=== PATIENT | female | born 1960 | race Caucasian/White ===

== ENCOUNTER → 2018-06-19 12:06 | Outpatient (CLI) | payer OTHER, SELFPAY ==
[2018-06-19 12:38] LABS: Appearance Urine UA CLEAR; Bilirubin Urine UA NEGATIVE (NEGATIVE); Color Urine UA YELLOW; Glucose Urine UA NEGATIVE (Normal); Ketones Urine UA NEGATIVE (NEGATIVE); Leukocyte Esterase Urine UA NEGATIVE (NEGATIVE); Nitrite Urine UA Negative (Negative); Occult Blood Urine UA NEGATIVE (Negative); Protein Urine UA NEGATIVE (Negative); Urobilinogen Urine UA 0.2 E.U./dL (0.2)
[2018-06-19 12:45] LABS: Hemoglobin A1C% w Est Avg Glu 6.5 % (4.0-6.0)
[2018-06-19 12:46] LABS: Add Manual Diff / Slide Review NO; Basophils Percent Auto 0.4 % (0-2); Eosinophils Percent Auto 1.5 % (2-4); Hematocrit 42.7 % (36-46); Lymphocytes Percent Auto 23.2 % (25-40); Mean Corpuscular HGB Conc 35.2 % (30-36); Mean Corpuscular Volume 93.7 fL (80-100); Monocytes Percent Auto 5.8 % (3-14); Neutrophils Absolute Auto 6200 /uL (3000-5900); Neutrophils Percent Auto 69.1 % (50-75); Platelet Count 245 X10^3/uL (150-400); Red Blood Cell Count 4.55 X10^6/uL (4.0-5.2); Red Cell Distribution Width 12.7 % (11.6-14.8)
[2018-06-19 13:18] LABS: Alanine Aminotransferase 32 IU/L (9-52); Albumin 4.6 g/dL (3.5-5.0); Albumin Globulin Ratio 1.6 (1.0-2.8); Alkaline Phosphatase 80 U/L (38-126); Aspartate Aminotransferase 34 IU/L (14-36); BUN Creatinine Ratio 26.3 (6-22); Bilirubin Total 0.5 mg/dL (0.2-1.3); Blood Urea Nitrogen 21 mg/dL (7-17); Calcium 9.8 mg/dL (8.4-10.2); Carbon Dioxide 25 mmol/L (22-32); Chloride 107 mmol/L (98-107); Cholesterol 203 mg/dL (140-199); Estimated Glomerular Filt Rate > 60.0 mL/min (>60); Globulin 2.8 g/dL (1.7-4.1); Glucose 125 mg/dL (70-100); HDL Cholesterol 47 mg/dL (40-60); HEMOLYSIS < 15 (0-50); LDL Cholesterol Calculated 130 mg/dL (<100); Potassium 4.3 mmol/L (3.4-5.1); Sodium 143 mmol/L (137-145); Total Protein 7.4 g/dL (6.3-8.2); Triglycerides 128 mg/dL (35-150)
[2018-06-19 13:49] LABS: TSH w/ Reflex to FT4 1.34 uIU/mL (0.47-4.68)
[2018-06-19 15:54] LABS: Microalbumin Urine Random 4.8 mg/dL (0-1.6)
[2018-06-19 15:55] LABS: Creatinine Urine Random 22.9 mg/dL; Microalbumi Creatinin Ratio Ur 209.6 ug/mg CR (<30)
== END ==
PROVIDERS: PCP Family Medicine; Visit Provider Nurse Practitioner Family
DX: E11.69 Type 2 diabetes mellitus with other specified complication (principal); E78.5 Hyperlipidemia, unspecified; Z72.0 Tobacco use
CPT/HCPCS: 36415; 80053; 80061; 81003; 82043; 82570; 83036; 84443; 85025

== ENCOUNTER → 2018-08-16 18:00 | Outpatient (CLI) | payer OTHER, SELFPAY | PROVIDERS: Family Provider Family Medicine; PCP Family Medicine | DX: Z23 Encounter for immunization (principal) | CPT/HCPCS: 90471; 90686 ==

== ENCOUNTER → 2019-02-20 13:14 | Outpatient (CLI) | payer OTHER, SELFPAY ==
[2019-02-20 14:06] LABS: Add Manual Diff / Slide Review NO; Basophils Absolute Auto 0 /uL (0-100); Basophils Percent Auto 0.3 % (0-2); Eosinophils Absolute Auto 100 /uL (0-450); Hematocrit 41.2 % (36-46); Hemoglobin 13.9 g/dL (12.0-16.0); Lymphocytes Absolute Auto 1900 /uL (1100-4500); Lymphocytes Percent Auto 17.3 % (25-40); Mean Corpuscular HGB Conc 33.8 % (30-36); Mean Corpuscular Hemoglobin 32.4 PG (26-34); Mean Corpuscular Volume 95.7 fL (80-100); Monocytes Absolute Auto 500 /uL (0-900); Monocytes Percent Auto 4.9 % (3-14); Neutrophils Absolute Auto 8500 /uL (1500-7000); Neutrophils Percent Auto 76.5 % (50-75); Platelet Count 243 X10^3/uL (150-400); Red Cell Distribution Width 13.1 % (11.6-14.8); White Blood Cell Count 11.1 X10^3/uL (4.5-11.0)
[2019-02-20 14:10] LABS: Hemoglobin A1C% w Est Avg Glu 5.9 % (4.0-6.0)
[2019-02-20 14:15] LABS: Cholesterol 115 mg/dL (140-199); HDL Cholesterol 50 mg/dL (40-60); LDL Cholesterol Calculated 43 mg/dL (<100); Triglycerides 108 mg/dL (35-150)
[2019-02-20 14:18] LABS: Alanine Aminotransferase 30 IU/L (9-52); Albumin 4.2 g/dL (3.5-5.0); Albumin Globulin Ratio 1.9 (1.0-2.8); Alkaline Phosphatase 65 U/L (38-126); Aspartate Aminotransferase 21 IU/L (14-36); BUN Creatinine Ratio 28.6 (6-22); Bilirubin Total 0.4 mg/dL (0.2-1.3); Blood Urea Nitrogen 20 mg/dL (7-17); Calcium 9.6 mg/dL (8.4-10.2); Carbon Dioxide 26 mmol/L (22-32); Chloride 104 mmol/L (98-107); Estimated Glomerular Filt Rate > 60.0 mL/min (>60); Globulin 2.2 g/dL (1.7-4.1); Glucose 103 mg/dL (70-100); HEMOLYSIS < 15 (0-50); Potassium 4.2 mmol/L (3.4-5.1); Sodium 139 mmol/L (137-145); Total Protein 6.4 g/dL (6.3-8.2)
== END ==
PROVIDERS: Nurse Practitioner Family; PCP Family Medicine; Visit Provider Family Medicine
DX: E78.5 Hyperlipidemia, unspecified (principal); E11.69 Type 2 diabetes mellitus with other specified complication; E11.9 Type 2 diabetes mellitus without complications; F32.9 Major depressive disorder, single episode, unspecified; G25.81 Restless legs syndrome
CPT/HCPCS: 36415; 80053; 80061; 83036; 85025

== ENCOUNTER → 2019-09-09 17:11 | Outpatient (CLI) | payer OTHER, SELFPAY | PROVIDERS: PCP Family Medicine | DX: Z23 Encounter for immunization (principal) | CPT/HCPCS: 90471; 90686 ==

== ENCOUNTER 2019-09-30 15:32 | Emergency (ER) | payer OTHER, SELFPAY ==
[2019-09-30 15:41] VITALS: BP 136/82; PULSE 81; RESP 20; TEMP 36.6; O2SAT 97; BMI 30.7
--- NOTE | 2019-09-30 15:52 | DI.RAD.S_ITS ---
PROCEDURE: XR KNEE LT 3V INDICATIONS: GLF, anterior pain TECHNIQUE: 3 views of the knee were acquired. COMPARISON: [facility], , KNEE 3V RIGHT, 07/01/2016, 14:14. FINDINGS: Bones: Transverse patellar fracture, with mild diastasis. Soft tissues: Small joint effusion. No suspicious soft tissue calcifications. IMPRESSION: Patellar fracture with associated small joint effusion Dictated by: David Huertas M.D. on 09/30/2019 at 16:22 Approved by: David Huertas M.D. on 09/30/2019 at 16:23
[2019-09-30 16:05] LABS: Add Manual Diff / Slide Review NO; Basophils Absolute Auto 0 /uL (0-100); Basophils Percent Auto 0.4 % (0-2); Eosinophils Absolute Auto 100 /uL (0-450); Hematocrit 37.8 % (36-46); Hemoglobin 13.3 g/dL (12.0-16.0); Lymphocytes Absolute Auto 2100 /uL (1100-4500); Lymphocytes Percent Auto 21.3 % (25-40); Mean Corpuscular HGB Conc 35.1 % (30-36); Mean Corpuscular Hemoglobin 33.3 PG (26-34); Mean Corpuscular Volume 94.8 fL (80-100); Monocytes Absolute Auto 500 /uL (0-900); Monocytes Percent Auto 5.1 % (3-14); Neutrophils Absolute Auto 7000 /uL (1500-7000); Neutrophils Percent Auto 72.2 % (50-75); Platelet Count 241 X10^3/uL (150-400); Red Blood Cell Count 3.99 X10^6/uL (4.0-5.2); White Blood Cell Count 9.7 X10^3/uL (4.5-11.0)
[2019-09-30 16:24] LABS: Alanine Aminotransferase 19 IU/L (<35); Albumin 4.1 g/dL (3.5-5.0); Albumin Globulin Ratio 1.6 (1.0-2.8); Alkaline Phosphatase 69 U/L (38-126); Aspartate Aminotransferase 29 IU/L (14-36); BUN Creatinine Ratio 31.7 (6-22); Bilirubin Total 0.4 mg/dL (0.2-1.3); Blood Urea Nitrogen 19 mg/dL (7-17); Carbon Dioxide 23 mmol/L (22-32); Chloride 105 mmol/L (98-107); Estimated Glomerular Filt Rate > 60.0 mL/min (>60); Globulin 2.5 g/dL (1.7-4.1); Glucose 171 mg/dL (80-110); HEMOLYSIS < 15 (0-50); Potassium 3.5 mmol/L (3.4-5.1); Sodium 137 mmol/L (137-145); Total Protein 6.6 g/dL (6.3-8.2)
[2019-09-30 16:25] LABS: Creatine Kinase 54 U/L (30-135)
[2019-09-30 16:36] LABS: Troponin I < 0.012 ng/mL (0.01-0.034)
[2019-09-30 16:49] VITALS: BP 122/85; PULSE 81; O2SAT 93
--- NOTE | 2019-09-30 16:52 | ED_ITS ---
HPI - Syncope General Chief Complaint: Syncope Stated Complaint: Passed Out and Fell At Work Time Seen by Provider: 09/30/19 15:42 Source: patient Mode of arrival: Wheelchair Limitations: no limitations History of Present Illness HPI narrative: Patient is a 59-year-old female with history of diabetes and hyperlipidemia who presents with a syncopal episode. 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 She came out of her room felt suddenly dizzy lightheaded and fell forward onto her knees and realized everyone was around her. She denies any chest pain or palpitations. She still feels a little dizzy and lightheaded. She did not hit her head she is not on any anti platelet her anticoagulation medication. She does complain of some back of the neck pain but is able to move her head and neck easily. She has no numbness tingling or weakness. She does complain of left knee pain she fell directly onto her knee. No chest pain or shortness of breath. Related Data Home Medications Medication Instructions Recorded Confirmed multivitamin 1 tab PO DAILY #0 12/14/11 09/30/19 Lancets 1 ea MISCELLANEOUS DIRECTED 09/30/19 09/30/19 losartan 50 mg PO QPM 09/30/19 09/30/19 metformin 1,000 mg PO QPM 09/30/19 09/30/19 rosuvastatin 10 mg PO QPM 09/30/19 09/30/19 sertraline [Zoloft] 50 mg PO QPM 09/30/19 09/30/19 Previous Rx's Medication Instructions Recorded blood sugar diagnostic #100 each 11/01/18 blood-glucose meter #1 each 11/15/18 hydrocodone-acetaminophen 1 tab PO Q6H PRN #10 tab 09/30/19 Allergies Allergy/AdvReac Type Severity Reaction Status Date / Time lisinopril AdvReac dry, Verified 09/30/19 15:46 hackey cough Review of Systems Review of Systems ROS Unobtainable: All systems reviewed & are unremarkable except as noted in HPI and below Constitutional Constitutional: Denies chills, Denies fever(s), Denies lethargy and Denies weakness Eyes Eyes: Denies change in vision, Denies eye discharge, Denies irritation and Denies loss of vision ENT Ears, Nose, Mouth, and Throat: Denies change in voice, Denies neck pain and Denies sore throat Cardiovascular Cardiovascular: Reports syncope, Denies dyspnea and Denies dyspnea on exertion Respiratory Respiratory: Denies cough, Denies dyspnea, Denies dyspnea on exertion and Denies wheezing Gastrointestinal Gastrointestinal: Denies abdominal pain, Denies change in bowel habits, Denies diarrhea, Denies nausea and Denies vomiting Genitourinary Genitourinary: Denies hematuria, Denies flank pain, Denies urinary incontinence and Denies urinary urgency Musculoskeletal Musculoskeletal: Reports as per HPI and Denies neck pain Integumentary/Breasts Skin/Breast: Denies pruritus, Denies erythema, Denies rash and Denies wounds Neurologic Neurologic: Reports syncope, Denies loss of vision and Denies weakness Allergic/Immunologic Allergic/Immunologic: Denies wheezing Patient History Medical History Chicken pox (Resolved) Chronic back pain (Chronic ~2000) Degenerative joint disease involving multiple joints (Chronic 2006) Depression (Chronic ~1999) Diabetes mellitus (Chronic ~2004) Measles (Resolved) Surgical History Anesthesia (Resolved) Status post appendectomy (Resolved 1991) Status post delivery (Resolved 1986) Status post delivery (Resolved 1989) Status post hernia repair (Resolved 2009) Status post tubal ligation (Resolved 1991) Family History Father Age: 82 Hypertension Sister Age: 54 Breast cancer Mother Alzheimer's disease Sister No problems noted. Social History Smoking Status: Current every day smoker Smoking Status: Current every day smoker tobacco type: cigarettes Substance Use Type: does not use Exam Initial Vital Signs Initial Vital Signs: Vital Signs Temperature 97.9 F 09/30/19 15:41 Pulse Rate 81 09/30/19 15:41 Respiratory Rate 20 09/30/19 15:41 Blood Pressure 136/82 09/30/19 15:41 Pulse Oximetry 97 09/30/19 15:41 GENERAL: Well-appearing, well-nourished and in no acute distress. HEENT: Head atraumatic,EOMI, pupils reactive, face symmetric NECK: No vertebral tenderness no step-offs CARDIOVASCULAR: Regular rate and rhythm without murmurs, rubs or gallops. RESPIRATORY: Breath sounds equal bilaterally, no wheezes rales or rhonchi. ABDOMEN: Soft, nontender. Normoactive bowel sounds all 4 quadrants. No guarding or rebound. EXTREMITIES: Normal range of motion, no clubbing or edema. Neurovascularly intact. Left knee tender to touch able to flex and extend but painful and range of motion limited due to pain. Peripheral pulse intact. NEUROLOGICAL: Alert and oriented x4.Normal gait and speech. Cranial nerves II through XII grossly intact. SKIN: Warm, dry, no laceration, no petechiae, no rashes or lesions. Procedures Orthopedic Splinting/Casting Injury #1: Side: left Lower Extremity Immobilizer: knee immobilizer Other Orthopedic Equipment: crutches Post splinting neuro exam: intact Post splinting vascular exam: intact Placed by: Nursing Course Orders Ordered: Discontinued Medications Sodium Chloride (Normal Saline 0.9%) 1,000 mls @ 1,000 mls/hr IV BOLUS ONE Stop: 09/30/19 17:50 Last Admin: 09/30/19 17:29 Dose: 1,000 mls/hr Documented by: LESLEY Ketorolac Tromethamine (Toradol) 30 mg IV NOW ONE Stop: 09/30/19 17:16 Last Admin: 09/30/19 17:29 Dose: 30 mg Documented by: LESLEY Morphine Sulfate (Morphine) 2 mg IV NOW ONE Stop: 09/30/19 18:17 Vital Signs Vital signs: Vital Signs - 8 hr 09/30/19 15:41 09/30/19 16:49 Temperature 97.9 F Pulse Rate 81 81 Respiratory Rate 20 Blood Pressure 136/82 Blood Pressure [Left Arm] 122/85 Pulse Oximetry 97 93 MDM - Syncope Lab Data Attestation: I reviewed the patient's lab results. Result diagrams: 09/30/19 15:57 09/30/19 15:57 Labs: Lab Results 09/30/19 09/30/19 09/30/19 Range/Units 15:57 15:57 16:03 WBC 9.7 (4.5-11.0) X10^3/uL RBC 3.99 L (4.0-5.2) X10^6/uL Hgb 13.3 (12.0-16.0) g/dL Hct 37.8 (36-46) % MCV 94.8 (80-100) fL MCH 33.3 (26-34) PG MCHC 35.1 (30-36) % RDW 13.0 (11.6-14.8) % Plt Count 241 (150-400) X10^3/uL Neut % (Auto) 72.2 (50-75) % Lymph % (Auto) 21.3 L (25-40) % [place] % (Auto) 5.1 (3-14) % Eos % (Auto) 1.0 L (2-4) % Baso % (Auto) 0.4 (0-2) % Neut # (Auto) 7000 (4243-5234) /uL Lymph # (Auto) 2100 (8122-3122) /uL [place] # (Auto) 500 (0-900) /uL Eos # (Auto) 100 (0-450) /uL Baso # (Auto) 0 (0-100) /uL Sodium 137 (137-145) mmol/L Potassium 3.5 (3.4-5.1) mmol/L Chloride 105 (98-107) mmol/L Carbon Dioxide 23 (22-32) mmol/L BUN 19 H (7-17) mg/dL Creatinine 0.60 (0.52-1.04) mg/dL Estimated GFR > 60.0 (>60) mL/min BUN/Creatinine Ratio 31.7 H (6-22) Glucose 171 H (80-110) mg/dL Calcium 9.0 (8.4-10.2) mg/dL Total Bilirubin 0.4 (0.2-1.3) mg/dL AST 29 (14-36) IU/L ALT 19 (<35) IU/L Alkaline Phosphatase 69 (38-126) U/L Total Creatine Kinase 54 (30-135) U/L CK-MB (CK-2) TNP CK-MB (CK-2) Rel Index TNP Troponin I < 0.012 (0.01-0.034) ng/mL Total Protein 6.6 (6.3-8.2) g/dL Albumin 4.1 (3.5-5.0) g/dL Globulin 2.5 (1.7-4.1) g/dL Albumin/Globulin Ratio 1.6 (1.0-2.8) Point of Care Testing Glucose POC 162 Imaging Data left knee XR: Radiologist's impression: PROCEDURE: XR KNEE LT 3V INDICATIONS: GLF, anterior pain TECHNIQUE: 3 views of the knee were acquired. COMPARISON: [facility], , KNEE 3V RIGHT, 07/01/2016, 14:14. FINDINGS: Bones: Transverse patellar fracture, with mild diastasis. Soft tissues: Small joint effusion. No suspicious soft tissue calcifications. IMPRESSION: Patellar fracture with associated small joint effusion Dictated by: David Huertas M.D. on 09/30/2019 at 16:22 ECG Data Attestation: I personally reviewed and interpreted this ECG as follows: Interpretation: Normal sinus rhythm rate 78 p.r. interval 183 QRS [address] elevation depression or T-wave inversions similar to previous EKGs in 2014 MDM Narrative Medical decision making narrative: 5:48Pm discussed with Orthopedics Dr. Ulloa, patient will likely need surgery call office tomorrow surgery will likely be September 2019. Agrees with knee immobilizer and crutches Patient likely had a vasovagal reaction blood work and EKG are overall reassuring after L of fluid she is feeling better. Toradol did help with a lot of her head and some neck pain. However she is still having significant pain in her knee she is given a dose morphine. Discharge Plan Departure Patient Disposition: Home Clinical Impression: Vasovagal syncope Closed fracture of left patella Qualifiers: Encounter type: initial encounter Fracture morphology: transverse Fracture alignment: nondisplaced Qualified Code(s): S82.035A - Nondisplaced transverse fracture of left patella, initial encounter for closed fracture Discharge Date/Time: 09/30/19 20:00 Instructions: DI for Syncope in Adults (Fainting), DI for Patella Fracture Activity Restrictions/Additional Instructions: *You have been diagnosed with fainting episode and left patellar fracture *What to do: He will likely need surgery on your left knee. Keep knee in a mobilizer use crutches no weight-bearing The probable of fainting episode today however he may require more testing and follow-up with your PCP in regards to this *Continue to take medications as directed A Ocate 1 tablet every 4 hours or 2 tablets every 6 hours if needed for severe pain *Follow up with your primary care provider in 2-3 days Call Orthopedics tomorrow , said he likely has room on 10/03/2019 and that it is okay to overbook. *Return to ER if you should have increasing pain recurrent syncopal episode chest pain shortness of breath heart palpitation or any new, worsening or concerning symptoms CONTROLLED SUBSTANCE DISCHARGE (Narcotoic/benzodiazepine/Flexeril/Phenergan) 1. You have been prescribed narcotic medications, it does have acet aminophen/Tylenol/paracetamol in it so do not take extra Tylenol or Tylenol containing products 2. Please understand that we cannot provide further refills of narcotics, benzodiazepines or controlled substances through the ED and her pain management will need to be through your provider. 3. While on these medications you cannot drive or operate heavy machinery. 4. You cannot sign legal documents or perform any duties such as this. 5. As long as you're taking opiate pain medications he should also be taking a stool softener such as Colace, Dulcolax, MiraLAX or prune juice, to help avoid constipation. Prescriptions: New hydrocodone-acetaminophen 5-325 mg tablet 1 tab PO Q6H PRN (Reason: pain) Qty: 10 RF: 0 No Action multivitamin Tablet 1 tab PO DAILY Qty: 0 RF: 0 (DME) blood sugar diagnostic [True Metrix Glucose Test Strip] strip See Dose Instructions .ROUTE .MEDSUPPLY Qty: 100 RF: 12 (DME) blood-glucose meter [Contour Meter] kit See Dose Instructions .ROUTE .MEDSUPPLY Qty: 1 RF: 0 sertraline [Zoloft] 50 mg tablet 50 mg PO QPM RF: 0 losartan 50 mg tablet 50 mg PO QPM RF: 0 metformin 1,000 mg tablet 1,000 mg PO QPM RF: 0 rosuvastatin 10 mg tablet 10 mg PO QPM RF: 0 Lancets 1 ea miscellaneous DIRECTED RF: 0 Referrals: Darin Ulloa MD [Physician] - Alivia Elliott DO [Primary Care Provider] -
[2019-09-30] MEDS: KETOROLAC 60 MG/2 ML VIAL 30 MG IV (17:29)
[2019-09-30] MEDS: SODIUM CHLORIDE 0.9% 1,000 ML 1000 ML IV (17:29)
--- NOTE | 2019-12-06 19:36 | PC.NURSE ---
Late entry: NS started 172 completed 1999. No ill effect.
== END 2019-09-30 20:00 | disposition home or self-care (01) ==
PROVIDERS: Emergency Provider Emergency Medicine; PCP Family Medicine
DX: R55 Syncope and collapse (principal); S82.035A Nondisplaced transverse fracture of left patella, initial encounter for closed fracture; W18.30XA Fall on same level, unspecified, initial encounter; E11.9 Type 2 diabetes mellitus without complications
CPT/HCPCS: 36415; 73562; 80053; 82550; 82962; 84484; 85025; 93005; 93010; 96361; 96374; 99283; 99285; J1885

== ENCOUNTER → 2019-12-16 13:54 | Outpatient (CLI) | payer OTHER, SELFPAY ==
[2019-12-16 15:49] LABS: Creatinine Urine Random 13.4 mg/dL
[2019-12-16 15:53] LABS: Microalbumi Creatinin Ratio Ur 126.8 ug/mg CR (<30); Microalbumin Urine Random 1.7 mg/dL (0-1.6)
== END ==
PROVIDERS: PCP Family Medicine; Referring Provider Family Medicine; Visit Provider Family Medicine
DX: E11.9 Type 2 diabetes mellitus without complications (principal)
CPT/HCPCS: 36415; 82043; 82570; 83036

== ENCOUNTER → 2019-12-26 12:08 | Outpatient (CLI) | payer OTHER, SELFPAY ==
--- NOTE | 2019-12-26 12:10 | DI.MG.S_ITS ---
BILATERAL DIGITAL SCREENING MAMMOGRAM 3D/2D WITH CAD: 12/26/2019 CLINICAL: Routine screening. Family history of breast cancer. Comparison is made to exams dated: 05/31/2017 mammogram, 01/29/2015 mammogram - [facility], 06/14/2011 mammogram, 07/01/2010 mammogram, and 07/03/2009 mammogram - [facility]. The tissue of both breasts is predominantly fatty. Current study was also evaluated with a Computer Aided Detection (CAD) system. No significant masses, calcifications, or other findings are seen in either breast. There has been no significant interval change. IMPRESSION: NEGATIVE There is no mammographic evidence of malignancy. A 1 year screening mammogram is recommended. This exam was interpreted at Station ID: [id number]. NOTE: For mammograms, a report in lay terms will be sent to the patient. Approximately 15% of breast malignancies will not be visualized mammographically. In the management of a palpable breast mass, a negative mammogram must not discourage biopsy of a clinically suspicious lesion. Electronically Signed By: Cristiano sosa/hardik:12/26/2019 12:55:29 letter sent: Normal Exam ACR BI-RADS Category 1: Negative [id number]
== END ==
PROVIDERS: PCP Family Medicine; Referring Provider Family Medicine; Visit Provider Family Medicine
DX: Z12.31 Encounter for screening mammogram for malignant neoplasm of breast (principal); Z80.3 Family history of malignant neoplasm of breast
CPT/HCPCS: 77063; 77067

== ENCOUNTER → 2020-07-28 | Outpatient (CLI) | payer OTHER, SELFPAY | PROVIDERS: PCP Family Medicine; Referring Provider Internal Medicine; Visit Provider Internal Medicine | DX: Z23 Encounter for immunization (principal) | CPT/HCPCS: 90471; 90686 ==

== ENCOUNTER → 2020-10-28 14:28 | Outpatient (CLI) | payer OTHER, SELFPAY ==
[2020-10-28] MEDS: COVID-19 VACC(MODERNA-1)/PF 100 MCG/0.5 ML VIAL IM (14:33)
== END ==
PROVIDERS: PCP Family Medicine; Visit Provider Internal Medicine
DX: Z23 Encounter for immunization (principal)
CPT/HCPCS: 0011A; 91301

== ENCOUNTER → 2020-11-25 14:18 | Outpatient (CLI) | payer OTHER, SELFPAY ==
[2020-11-25] MEDS: COVID-19 VACC #2, MRNA(MOD) 100 MCG/0.5 ML VIAL IM (14:27)
== END ==
PROVIDERS: PCP Family Medicine; Visit Provider Internal Medicine
DX: Z23 Encounter for immunization (principal)
CPT/HCPCS: 0012A; 91301

== ENCOUNTER 2020-12-14 18:26 | Emergency (ER) | payer OTHER, SELFPAY ==
[2020-12-14 18:31] VITALS: BP 144/95; PULSE 74; RESP 20; TEMP 36.6; O2SAT 97
--- NOTE | 2020-12-14 18:33 | DI.RAD.S_ITS ---
PROCEDURE: XR WRIST RT MIN 3V INDICATIONS: struck with metal object TECHNIQUE: For views of the wrist were acquired. COMPARISON: [facility], , WRIST MINIMUM 3 VIEWS LEFT, 01/02/2016, 23:59. FINDINGS: Bones: No fractures or dislocations. No suspicious bony lesions. Scaphoid view: No trauma Soft tissues: No suspicious soft tissue calcifications. IMPRESSION: No acute trauma found. Dictated by: Keith Craft M.D. on 12/14/2020 at 19:08 Approved by: Keith Craft M.D. on 12/14/2020 at 19:08
[2020-12-14] MEDS: IBUPROFEN 400 MG TABLET PO (19:06)
[2020-12-14] MEDS: ACETAMINOPHEN 325 MG TABLET 650 MG PO (19:06)
--- NOTE | 2020-12-14 19:17 | ED.UPPEXIN ---
HPI - Extremity Injury (Upper) General Chief Complaint: Extremity Injury, Upper Stated Complaint: RIGHT WRIST INJURY Time Seen by Provider: 12/14/20 18:43 Source: patient Mode of arrival: Ambulatory Limitations: no limitations History of Present Illness HPI narrative: 60F smoker with noncontributory medical history presents with a chief complaint of an accidental injury to the dorsum of her right wrist while working tonight. She states that while entering a storage area a metal object fell off of shelf and landed on the dorsum of her right wrist in the region of her ulnar styloid. She states since then she has had pain on the dorsum of her wrist as well as some tingling in her hand. She denies other injury and is otherwise well and free of complaint. She has no head, neck or back pain. She denies any chest pain or shortness of breath. She is right-handed MD complaint: injury to: right Onset (ago): minute(s) Other Extremity Injury: Right: hand Other injuries: none Handedness: right Place: work Severity: moderate Relieving factors: immobilization and rest Exacerbating factors: movement of extremity Context: direct blow Associated symptoms: numbness Treatments prior to arrival: cold therapy and bandage Related Data Home Medications Medication Instructions Recorded Confirmed multivitamin 1 tab PO DAILY #0 12/14/11 01/02/20 Lancets 1 ea MISCELLANEOUS DIRECTED 09/30/19 01/02/20 Previous Rx's Medication Instructions Recorded blood sugar diagnostic #100 each 11/01/18 blood-glucose meter #1 each 11/15/18 losartan 50 mg tablet 50 mg PO QPM #90 tab 01/02/20 metformin 500 mg tablet 500 mg PO QPM #90 tab 01/02/20 rosuvastatin 10 mg tablet 10 mg PO QPM #90 tab 01/02/20 sertraline 50 mg tablet 50 mg PO QPM #90 tab 01/02/20 trazodone 50 mg tablet 50 mg PO BEDTIME PRN #30 tab 01/02/20 Allergies Allergy/AdvReac Type Severity Reaction Status Date / Time lisinopril AdvReac dry, Verified 01/02/20 09:20 hackey cough Review of Systems Constitutional Constitutional: Denies chills, Denies fatigue, Denies fever(s), Denies frequent falls, Denies lethargy and Denies weakness Eyes Eyes: Denies change in vision, Denies eye discharge, Denies irritation and Denies loss of vision ENT Ears, Nose, Mouth, and Throat: Denies change in voice, Denies dizziness, Denies neck pain, Denies sore throat and Denies throat swelling Cardiovascular Cardiovascular: Denies chest pain, Denies irregular heart rhythm, Denies lightheadedness, Denies palpitations, Denies dyspnea, Denies dyspnea on exertion and Denies orthopnea Respiratory Respiratory: Denies cough, Denies dyspnea, Denies dyspnea on exertion and Denies wheezing Gastrointestinal Gastrointestinal: Denies abdominal pain, Denies change in bowel habits, Denies diarrhea, Denies nausea and Denies vomiting Musculoskeletal Musculoskeletal: Reports arthralgias, Reports joint swelling, Denies neck pain, Denies numbness and Reports tingling Integumentary/Breasts Skin/Breast: Denies pruritus, Denies erythema, Denies rash and Denies wounds Neurologic Neurologic: Denies behavioral changes, Denies confusion, Denies dizziness, Denies frequent falls, Denies loss of vision, Denies numbness, Reports tingling and Denies weakness Psychiatric Psychiatric: Denies anxiety, Denies behavioral changes, Denies confusion, Denies depression, Denies homicidal ideation and Denies suicidal ideation Endocrine Endocrine: Denies fatigue, Denies flushing and Denies palpitations Hematologic/Lymphatic Hematologic/Lymphatic: Denies easy bruising Allergic/Immunologic Allergic/Immunologic: Denies urticaria, Denies throat swelling and Denies wheezing Patient History Medical History (Updated 12/14/20 @ 19:19 by Ge Novoa DO) Chicken pox Chronic back pain (~2000) Degenerative joint disease involving multiple joints (2006) Depression (~1999) Diabetes mellitus (~2004) Measles Surgical History Anesthesia Status post appendectomy (1991) Status post delivery (1986) Status post delivery (1989) Status post hernia repair (2009) Status post tubal ligation (1991) Family History Father Age: 83 Hypertension Sister Age: 55 Breast cancer Mother Alzheimer's disease Sister No problems noted. Social History Smoking Status: Current every day smoker Smoking Status: Current every day smoker tobacco type: cigarettes Substance Use Type: does not use Exam Narrative Exam Narrative: GEN: AOx3 and in mild distress EYES: Pupils are equal, round, and reactive to light and accommodation. Extraoccular muscles are intact bilaterally. There is no subconjunctival hemorrhage or exudate. CHEST: Lungs are clear to auscultation bilaterally and free of wheezes, rales, or rhonchi. Heart rate is regular rhythm, there are no murmurs, clicks, rubs, or gallops. There is no chest wall tenderness. ABD: Abdomen is soft and nontender. There is no guarding or rebound. Bowel sounds are normal in all 4 quadrants. There is no mass or organomegaly. EXT: Full but painful range of motion of the right wrist, most tender to palpation overlying the dorsal surface of ulnar styloid, no obvious deformity or external manifestation of injury. Closed, isolated and vascularly intact, cap refill less than 2 seconds. Full strength with making a fist and extension of fingers. Patient does report some tingling of her fingers. Reports pain with axial loading of thumb SKIN: Warm, pink, and dry. No erythema or rash Initial Vital Signs Initial Vital Signs: Vital Signs Temperature 97.9 F 12/14/20 18:31 Pulse Rate 74 12/14/20 18:31 Respiratory Rate 20 12/14/20 18:31 Blood Pressure 144/95 H 12/14/20 18:31 Pulse Oximetry 97 12/14/20 18:31 Procedures Orthopedic Splinting/Casting Injury #1: Side: right Upper Extremity Injury Location: wrist and hand Upper Extremity Immobilizer: thumb spica Post splinting neuro exam: no change Post splinting vascular exam: intact Placed by: Nursing Course Orders Ordered: ED Orders 12/14/20 18:33 XR wrist RT min 3V Stat Discontinued Medications Acetaminophen (Acetaminophen 325 Mg Tablet) 650 mg PO NOW ONE Stop: 12/14/20 18:40 Last Admin: 12/14/20 19:06 Dose: 650 mg Documented by: MOE Ibuprofen (Ibuprofen 400 Mg Tablet) 400 mg PO NOW ONE Stop: 12/14/20 18:40 Last Admin: 12/14/20 19:06 Dose: 400 mg Documented by: MOE Vital Signs Vital signs: Vital Signs - 8 hr 12/14/20 18:31 Temperature 97.9 F Pulse Rate 74 Respiratory Rate 20 Blood Pressure 144/95 H Pulse Oximetry 97 MDM - Extremity Injury (Upper) Imaging Data Extremity x-ray #1: Radiologist's Impression: Jhoana Devine 60 F [address] [id number] ReportSigned Patient: Jhoana Devine MMR#: [id number]: [id number]/Sex: 60 / FDate of Service: 12/14/20Loc: EDAccession Number: [id number] Procedure: XR wrist RT min 3V Ordering Provider: Ge Novoa D.O. PROCEDURE: XR WRIST RT MIN 3V INDICATIONS: struck with metal object TECHNIQUE: For views of the wrist were acquired. COMPARISON: [facility], WRIST MINIMUM 3 VIEWS LEFT, 01/02/2016, 23:59. FINDINGS: Bones: No fractures or dislocations. No suspicious bony lesions. Scaphoid view: No trauma Soft tissues: No suspicious soft tissue calcifications. IMPRESSION: No acute trauma found. Dictated by: Keith Craft M.D. on 12/14/2020 at 19:08 Approved by: Keith Craft M.D. on 12/14/2020 at 19:08 Discharge Plan Departure Patient Disposition: Home Clinical Impression: Paresthesia Contusion of right wrist Qualifiers: Encounter type: initial encounter Qualified Code(s): S60.211A - Contusion of right wrist, initial encounter Instructions: DI for Contusion Activity Restrictions/Additional Instructions: *You have been diagnosed with [right wrist contusion with associated paresthesia. No significant findings on the x-ray, otherwise reassuring exam.] *What to do: *Take medications as directed: Tylenol and Motrin for pain control *Follow up with your primary care provider in 5-7 days, call for an appointment. Let them know you were seen in the Emergency Department and that we ask that you be seen in follow up *Return to ER if you should have any new, worsening or concerning symptoms, such as [worsening pain, numbenss, tingling, weakness or other bothersome symptoms Wear your splint for comfort until follow up. ] Prescriptions: No Action losartan 50 mg tablet 50 mg PO QPM Qty: 90 RF: 3 metformin 500 mg tablet 500 mg PO QPM Qty: 90 RF: 3 rosuvastatin 10 mg tablet 10 mg PO QPM Qty: 90 RF: 3 sertraline [Zoloft] 50 mg tablet 50 mg PO QPM Qty: 90 RF: 3 trazodone 50 mg tablet 50 mg PO BEDTIME PRN (Reason: insomnia) Qty: 30 RF: 1 multivitamin Tablet 1 tab PO DAILY Qty: 0 RF: 0 (DME) blood sugar diagnostic [True Metrix Glucose Test Strip] strip See Dose Instructions .ROUTE .MEDSUPPLY Qty: 100 RF: 12 (DME) blood-glucose meter [Contour Meter] kit See Dose Instructions .ROUTE .MEDSUPPLY Qty: 1 RF: 0 Lancets 1 ea miscellaneous DIRECTED RF: 0 Referrals: Alivia Elliott DO [Primary Care Provider] - Stand Alone Forms: Work Release Note
== END 2020-12-14 19:39 | disposition home or self-care (01) ==
PROVIDERS: Emergency Provider Emergency Medicine; PCP Family Medicine
DX: S60.211A Contusion of right wrist, initial encounter (principal); W22.8XXA Striking against or struck by other objects, initial encounter; Y99.0 Civilian activity done for income or pay
CPT/HCPCS: 73110; 99283

== ENCOUNTER → 2021-05-26 14:04 | Outpatient (CLI) | payer OTHER, SELFPAY ==
[2021-05-26 16:17] LABS: Alanine Aminotransferase 20 IU/L (<35); Albumin Globulin Ratio 1.5 (1.0-2.8); Alkaline Phosphatase 71 U/L (38-126); Aspartate Aminotransferase 28 IU/L (14-36); BUN Creatinine Ratio 29.4 (6-22); Bilirubin Total 0.3 mg/dL (0.2-1.3); Blood Urea Nitrogen 20 mg/dL (7-17); Calcium 9.3 mg/dL (8.4-10.2); Carbon Dioxide 26 mmol/L (22-32); Chloride 106 mmol/L (98-107); Cholesterol 138 mg/dL (140-199); Estimated Glomerular Filt Rate > 60.0 mL/min (>60); Globulin 2.6 g/dL (1.7-4.1); Glucose 149 mg/dL (80-110); HDL Cholesterol 41 mg/dL (40-60); HEMOLYSIS < 15 (0-50); LDL Cholesterol Calculated 70 mg/dL (<100); Potassium 4.2 mmol/L (3.4-5.1); Sodium 138 mmol/L (137-145); Total Protein 6.6 g/dL (6.3-8.2); Triglycerides 137 mg/dL (35-150)
[2021-05-26 16:43] LABS: TSH w/ Reflex to FT4 0.94 uIU/mL (0.47-4.68)
== END ==
PROVIDERS: PCP Family Medicine; Referring Provider Family Medicine; Visit Provider Family Medicine
DX: E11.69 Type 2 diabetes mellitus with other specified complication (principal); E11.9 Type 2 diabetes mellitus without complications; E78.5 Hyperlipidemia, unspecified; Z13.9 Encounter for screening, unspecified
CPT/HCPCS: 36415; 80053; 80061; 83036; 84443

== ENCOUNTER → 2021-07-06 12:41 | Outpatient (ROUT) | payer OTHER, SELFPAY ==
[2021-07-06 16:01] LABS: Creatinine Urine Random 36.3 mg/dL
[2021-07-06 16:07] LABS: Microalbumin Urine Random 1.6 mg/dL (0-1.6)
== END ==
PROVIDERS: PCP Family Medicine; Visit Provider Family Medicine
DX: E11.9 Type 2 diabetes mellitus without complications (principal)
CPT/HCPCS: 82043; 82570

== ENCOUNTER → 2021-08-06 11:22 | Outpatient (CLI) | payer OTHER, SELFPAY | PROVIDERS: PCP Family Medicine; Referring Provider Internal Medicine; Visit Provider Internal Medicine | DX: Z23 Encounter for immunization (principal) | CPT/HCPCS: 90471; 90686 ==

== ENCOUNTER 2021-10-13 01:41 | Emergency (ER) | payer OTHER, SELFPAY ==
[2021-10-13 01:55] VITALS: BP 135/79; PULSE 71; RESP 18; TEMP 36.7; O2SAT 99; BMI 33.7
--- NOTE | 2021-10-13 02:12 | ED.SKABFB ---
HPI - Skin/Abscess/Foreign Bdy General Chief complaint: Skin/Abscess/Foreign Body Stated complaint: open wound right hip x2 days Time Seen by Provider: 10/13/21 01:50 Source: patient Mode of arrival: Ambulatory Limitations: no limitations History of Present Illness HPI narrative: Patient is a 61-year-old female history of hypertension, type 2 diabetes presenting with wound of her left lower quadrant in her his history in section scar. She says been there for the last 2 days however it has opened and started draining. It is slightly tender. She denies any fever or chills. Related Data Home Medications Medication Instructions Recorded Confirmed multivitamin 1 tab PO DAILY #0 12/14/11 08/06/21 Lancets 1 ea MISCELLANEOUS DIRECTED 09/30/19 08/06/21 Previous Rx's Medication Instructions Recorded blood sugar diagnostic (True #100 each 11/01/18 Metrix Glucose Test Strip) blood-glucose meter (Contour Meter) #1 each 11/15/18 losartan 50 mg tablet 50 mg PO QPM #90 tab 07/06/21 metformin 500 mg tablet 500 mg PO QPM #90 tab 07/06/21 rosuvastatin 10 mg tablet 10 mg PO QPM #90 tab 07/06/21 sertraline 50 mg tablet (Zoloft) 50 mg PO QPM #90 tab 07/06/21 trazodone 50 mg tablet 50 mg PO BEDTIME PRN #30 tab 07/06/21 doxycycline hyclate 100 mg capsule 100 mg PO BID #20 cap 10/13/21 Allergies Allergy/AdvReac Type Severity Reaction Status Date / Time lisinopril AdvReac dry, Verified 01/02/20 09:20 hackey cough Review of Systems Review of Systems Narrative: GENERAL: Denies chills,fever HEENT: Denies throat pain RESPIRATORY: Denies dyspnea, cough, wheezing CARDIOVASCULAR: Denies chest pain, palpitations GASTROINTESTINAL: Denies nausea, vomiting MUSCULOSKELETAL: Denies extremity pain, injury SKIN: See HPI NEUROLOGIC: Denies weakness, dizziness, headache, numbness 8 point review of systems is negative except for those stated above and HPI Patient History Medical History (Updated 10/13/21 @ 02:18 by Caty Mckeon DO) Chicken pox Chronic back pain (~2000) Degenerative joint disease involving multiple joints (2006) Depression (~1999) Diabetes mellitus (~2005) Measles Surgical History Anesthesia Status post appendectomy (1991) Status post delivery (1986) Status post delivery (1989) Status post hernia repair (2009) Status post tubal ligation (1991) Family History Father Age: 84 Hypertension Sister Age: 56 Breast cancer Mother Alzheimer's disease Sister No problems noted. Social History Smoking Status: Current every day smoker Smoking Status: Current every day smoker tobacco type: cigarettes Substance Use Type: does not use Exam Initial Vital Signs Initial Vital Signs: Vital Signs Temperature 98.1 F 10/13/21 01:55 Pulse Rate 71 10/13/21 01:55 Respiratory Rate 18 10/13/21 01:55 Blood Pressure 135/79 10/13/21 01:55 Pulse Oximetry 99 10/13/21 01:55 GENERAL: Alert well-appearing 61-year-old female CARDIOVASCULAR: peripheral pulses in tact, cap refill <2 sec RESPIRATORY: No respiratory distress, speaks in full sentences without difficulty EXTREMITIES: Normal range of motion, no clubbing or edema. Neurovascularly intact NEUROLOGICAL: Cranial nerves II through XII grossly intact. Normal gait and speech. SKIN: Left lower quadrant in Cesarian section scar 4 cm dehiscence with 2 cm gaping is gross drainage some hardening is present but no erythema no fluctuation. Mild tenderness to touch Course Orders Ordered: Discontinued Medications Doxycycline Hyclate (Doxycycline Hyclate 100 Mg Tablet) 100 mg PO NOW ONE Stop: 10/13/21 02:20 Last Admin: 10/13/21 02:25 Dose: 100 mg Documented by: WILL Vital Signs Vital signs: Vital Signs - 8 hr 10/13/21 01:55 Temperature 98.1 F Pulse Rate 71 Respiratory Rate 18 Blood Pressure 135/79 Pulse Oximetry 99 MDM - Skin/Abscess/Foreign Bdy MDM Narrative Medical decision making narrative: The patient overall appears well she is afebrile. 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 There is significant amount of drainage I suspect probable abscess wound culture is pending. Started on doxycycline. Discharge Plan Departure Patient Disposition: Home Clinical Impression: Abdominal wall abscess at site of surgical wound Instructions: DI for Skin Abscess Activity Restrictions/Additional Instructions: *You have been diagnosed with abdominal wall abscess *What to do: Please monitor very carefully. Antibiotic should start helping you should notice it is different and 2-3 days *Continue to take medications as directed Bactrim 1 tablet twice a day for 10 days *Follow up with your primary care provider in 2-3 days or call [phone] *Return to ER if you should have increasing redness, pain, fever is, drainage or any new, worsening or concerning symptoms Prescriptions: New doxycycline hyclate 100 mg capsule 100 mg PO BID Qty: 20 0RF No Action losartan 50 mg tablet 50 mg PO QPM Qty: 90 3RF metformin 500 mg tablet 500 mg PO QPM Qty: 90 3RF rosuvastatin 10 mg tablet 10 mg PO QPM Qty: 90 3RF trazodone 50 mg tablet 50 mg PO BEDTIME PRN (Reason: insomnia) Qty: 30 1RF multivitamin Tablet 1 tab PO DAILY Qty: 0 0RF (DME) blood sugar diagnostic [True Metrix Glucose Test Strip] strip See Dose Instructions .ROUTE .MEDSUPPLY Qty: 100 12RF Dose Instruction: As directed Rx Instructions: Use to test blood sugar before meals and at bedtime (DME) blood-glucose meter [Contour Meter] kit See Dose Instructions .ROUTE .MEDSUPPLY Qty: 1 0RF Dose Instruction: As directed Rx Instructions: As directed sertraline [Zoloft] 50 mg tablet 50 mg PO QPM Qty: 90 3RF Lancets 1 ea miscellaneous DIRECTED 0RF Referrals: Alivia Elliott DO [Primary Care Provider] -
[2021-10-13] MEDS: DOXYCYCLINE HYCLATE 100 MG TABLET PO (02:25)
== END 2021-10-13 02:27 | disposition home or self-care (01) ==
PROVIDERS: Emergency Provider Emergency Medicine; PCP Family Medicine
DX: L02.211 Cutaneous abscess of abdominal wall (principal); F17.210 Nicotine dependence, cigarettes, uncomplicated
CPT/HCPCS: 99283

== ENCOUNTER → 2022-02-15 14:20 | Outpatient (CLI) | payer OTHER, SELFPAY ==
[2022-02-15 15:17] LABS: Influenza A - CEPHEID Flu A NEGATIVE (NEGATIVE); Influenza B - CEPHEID Flu B NEGATIVE (NEGATIVE)
[2022-02-15 15:18] LABS: COVID-19 CEPHEID PCR (VTM/NP) Negative (Negative)
== END ==
PROVIDERS: PCP Family Medicine; Visit Provider Physician Assistant
DX: B34.9 Viral infection, unspecified (principal); Z20.822 Contact with and (suspected) exposure to COVID-19
CPT/HCPCS: 0240U

== ENCOUNTER 2022-02-17 13:09 | Emergency (ER) | payer OTHER, SELFPAY ==
[2022-02-17] VITALS (13 sets, daily range): BP systolic 103–132; BP diastolic 56–88; PULSE 60–81; RESP 12–42; TEMP 36.8; O2SAT 95–99; BMI 33.5
--- NOTE | 2022-02-17 13:23 | DI.RAD.S_ITS ---
PROCEDURE: XR CHEST 1V INDICATIONS: chest pain TECHNIQUE: One view of the chest was acquired. COMPARISON: [facility], , CHEST 2 VIEW, 12/28/2017, 14:52. FINDINGS: Surgical changes and devices: None. Lungs and pleura: Lungs are clear. No pleural effusions or pneumothorax. Mediastinum: Mediastinal contours appear normal. Heart size is normal. Bones and chest wall: No suspicious bony lesions. Overlying soft tissues appear unremarkable. IMPRESSION: No acute cardiopulmonary pathology. Dictated by: Jerry Mesa M.D. on 02/17/2022 at 14:08 Approved by: Jerry Mesa M.D. on 02/17/2022 at 14:09
--- NOTE | 2022-02-17 13:51 | ED_ITS ---
HPI - General Adult General Chief complaint: Dizziness Stated complaint: Referred for iv fluids, fever, nausea Time Seen by Provider: 02/17/22 13:44 Source: patient Mode of arrival: Ambulatory History of Present Illness HPI narrative: 61-year-old female. Approximately 1 week ago was on vacation. She returned a couple days later. Soon after returning she started to have episodes of nausea and vomiting. She does describe it as coming in waves although has a baseline uneasy feeling even when she is not vomiting. She also has had fevers. No other sick contacts. No chest pain. No shortness of breath. No abdominal pain. No change in bowel habits. No urinary symptoms. No rashes. She went to the walk-in clinic earlier this week and was given Zofran which she states works somewhat but seems to not be working as much as it used to. She was also tested for COVID in the fluid she reports was negative. Due to continued symptoms she was instructed to come to the emergency department 5 her primary doctor for IV fluids. Related Data Home Medications Medication Instructions Recorded Confirmed multivitamin 1 tab PO DAILY #0 12/14/11 02/15/22 Lancets 1 ea MISCELLANEOUS DIRECTED 09/30/19 02/15/22 Previous Rx's Medication Instructions Recorded blood sugar diagnostic (True #100 each 11/01/18 Metrix Glucose Test Strip) blood-glucose meter (Contour Meter) #1 each 11/15/18 losartan 50 mg tablet 50 mg PO QPM #90 tab 07/06/21 metformin 500 mg tablet 500 mg PO QPM #90 tab 07/06/21 rosuvastatin 10 mg tablet 10 mg PO QPM #90 tab 07/06/21 sertraline 50 mg tablet (Zoloft) 50 mg PO QPM #90 tab 07/06/21 trazodone 50 mg tablet 50 mg PO BEDTIME PRN #30 tab 07/06/21 doxycycline hyclate 100 mg capsule 100 mg PO BID #20 cap 10/13/21 ondansetron 4 mg disintegrating 4 mg PO Q8H PRN #20 tab 02/15/22 tablet metoclopramide HCl 5 mg tablet 5 mg PO Q6H PRN #14 tab 02/17/22 (Reglan) Allergies Allergy/AdvReac Type Severity Reaction Status Date / Time lisinopril AdvReac dry, Verified 02/17/22 13:19 hackey cough Review of Systems Constitutional Constitutional: Reports fever(s) and Denies headache(s) ENT Ears, Nose, Mouth, and Throat: Denies headache(s) Cardiovascular Cardiovascular: Denies chest pain and Denies dyspnea Respiratory Respiratory: Denies dyspnea Gastrointestinal Gastrointestinal: Denies abdominal pain, Denies change in bowel habits, Reports nausea and Reports vomiting Genitourinary Genitourinary: Denies dysuria Integumentary/Breasts Skin/Breast: Denies rash Neurologic Neurologic: Denies headache(s) Hematologic/Lymphatic On Anticoagulants: No Patient History Medical History (Updated 02/17/22 @ 16:30 by Manny Peterson DO) Chicken pox Chronic back pain (~2000) Degenerative joint disease involving multiple joints (2006) Depression (~1999) Diabetes mellitus (~2004) Measles Surgical History Anesthesia Status post appendectomy (1991) Status post delivery (1986) Status post delivery (1989) Status post hernia repair (2009) Status post tubal ligation (1991) Family History Father Age: 84 Hypertension Sister Age: 56 Breast cancer Mother Alzheimer's disease Sister No problems noted. Social History Smoking Status: Current every day smoker Smoking Status: Current every day smoker tobacco type: cigarettes Substance Use Type: does not use Exam Initial Vital Signs Initial Vital Signs: Vital Signs Temperature 98.2 F 02/17/22 13:19 Pulse Rate 74 02/17/22 13:19 Respiratory Rate 17 02/17/22 13:19 Blood Pressure 132/62 02/17/22 13:19 Pulse Oximetry 97 02/17/22 13:19 HENMT Head: normal to inspection and normocephalic Resp Effort & Inspection: normal respiratory effort Auscultation: clear to auscultation bilaterally Cardio Rate: regular rate Rhythm: regular rhythm GI Inspection: normal to inspection Palpation: soft and No tender Back/Spine/Pelvis Back: No CVA tenderness Skin General: no rashes or lesions noted Neuro General: patient alert, patient awake and moves all extremities Extrem General: normal to inspection and capillary refill normal Psych Appearance: grossly normal and well kempt Course Orders Ordered: ED Orders 02/17/22 13:23 XR chest 1V Stat EKG-12 Lead Stat 02/17/22 13:28 COVID19 -Nasal RAPID/Pre-Proc Stat 02/17/22 13:30 Complete Blood Count AUTO DIFF Stat Comprehensive Metabolic Panel Stat Lipase Stat Magnesium Stat Partial Thromboplastin Time Stat Prothrombin Time INR Stat Troponin & CK Cardiac Panel Stat 02/17/22 14:59 Urine Microscopic Stat Discontinued Medications Sodium Chloride (Normal Saline 0.9%) 1,000 mls @ 1,000 mls/hr IV BOLUS ONE Stop: 02/17/22 14:51 Last Infusion: 02/17/22 15:16 Dose: 0 mls/hr Documented by: Admin: 02/17/22 14:05 Dose: 1,000 mls/hr Documented by: LA NENA Metoclopramide HCl (Metoclopramide 10 Mg/2 Ml Inj) 5 mg IV NOW ONE Stop: 02/17/22 13:53 Last Admin: 02/17/22 14:06 Dose: 5 mg Documented by: LA NENA Vital Signs Vital signs: Vital Signs - 8 hr 02/17/22 13:19 02/17/22 13:29 02/17/22 13:30 Temperature 98.2 F Pulse Rate 74 81 74 Respiratory Rate 17 29 H Blood Pressure 132/62 Pulse Oximetry 97 96 02/17/22 13:31 02/17/22 14:00 02/17/22 14:02 Temperature Pulse Rate 69 61 63 Respiratory Rate 26 H 27 H 27 H Blood Pressure 127/58 L 103/56 L Pulse Oximetry 97 97 96 02/17/22 14:30 02/17/22 14:53 02/17/22 15:00 Temperature Pulse Rate 60 70 60 Respiratory Rate 15 12 22 Blood Pressure 103/58 L 117/57 L Pulse Oximetry 99 98 95 02/17/22 15:30 02/17/22 16:00 02/17/22 16:30 Temperature Pulse Rate 60 62 62 Respiratory Rate 22 42 H 34 H Blood Pressure Pulse Oximetry 98 95 97 Medical Decision Making Lab Data Lab results reviewed: Yes I reviewed the patient's lab results. Result diagrams: 02/17/22 13:30 02/17/22 13:30 Labs: Lab Results 04/28/22 04/28/22 04/28/22 Range/Units 13:28 13:30 13:30 WBC 9.5 (4.5-11.0) X10^3/uL RBC 3.66 L (4.0-5.2) X10^6/uL Hgb 11.9 L (12.0-16.0) g/dL Hct 34.4 L (36-46) % MCV 93.9 (80-100) fL MCH 32.6 (26-34) PG MCHC 34.7 (30-36) % RDW 12.6 (11.6-14.8) % Plt Count 262 (150-400) X10^3/uL Neut % (Auto) 81.9 H (50-75) % Lymph % (Auto) 12.1 L (25-40) % [place] % (Auto) 5.3 (3-14) % Eos % (Auto) 0.3 L (2-4) % Baso % (Auto) 0.4 (0-2) % Neut # (Auto) 7800 H (5450-3388) /uL Lymph # (Auto) 1100 (9023-1182) /uL [place] # (Auto) 500 (0-900) /uL Eos # (Auto) 0 (0-450) /uL Baso # (Auto) 0 (0-100) /uL PT 13.3 H (10.1-12.7) SECONDS INR 1.2 (0.9-1.3) APTT 29 (26.4-36.2) SECONDS Sodium (137-145) mmol/L Potassium (3.4-5.1) mmol/L Chloride (98-107) mmol/L Carbon Dioxide (22-32) mmol/L BUN (7-17) mg/dL Creatinine (0.52-1.04) mg/dL Estimated GFR (>60) mL/min BUN/Creatinine Ratio (6-22) Glucose (80-110) mg/dL Calcium (8.4-10.2) mg/dL Magnesium (1.6-2.3) mg/dL Total Bilirubin (0.2-1.3) mg/dL AST (14-36) IU/L ALT (<35) IU/L Alkaline Phosphatase (38-126) U/L Total Creatine Kinase (30-135) U/L CK-MB (CK-2) CK-MB (CK-2) Rel Index Troponin I (0.01-0.034) ng/mL Total Protein (6.3-8.2) g/dL Albumin (3.5-5.0) g/dL Globulin (1.7-4.1) g/dL Albumin/Globulin Ratio (1.0-2.8) Lipase (23-300) U/L Urine RBC (0-5/HPF) Urine WBC (0-5/HPF) Ur Squamous Epith Cells (0-5/HPF) Urine Bacteria (None) Ur Culture Indicated? SARS-CoV-2 (PCR) Negative (Negative) 02/17/22 02/17/22 Range/Units 13:30 14:59 WBC (4.5-11.0) X10^3/uL RBC (4.0-5.2) X10^6/uL Hgb (12.0-16.0) g/dL Hct (36-46) % MCV (80-100) fL MCH (26-34) PG MCHC (30-36) % RDW (11.6-14.8) % Plt Count (150-400) X10^3/uL Neut % (Auto) (50-75) % Lymph % (Auto) (25-40) % [place] % (Auto) (3-14) % Eos % (Auto) (2-4) % Baso % (Auto) (0-2) % Neut # (Auto) (0779-3555) /uL Lymph # (Auto) (5755-2130) /uL [place] # (Auto) (0-900) /uL Eos # (Auto) (0-450) /uL Baso # (Auto) (0-100) /uL PT (10.1-12.7) SECONDS INR (0.9-1.3) APTT (26.4-36.2) SECONDS Sodium 131 L (137-145) mmol/L Potassium 4.3 (3.4-5.1) mmol/L Chloride 99 (98-107) mmol/L Carbon Dioxide 24 (22-32) mmol/L BUN 23 H (7-17) mg/dL Creatinine 0.74 (0.52-1.04) mg/dL Estimated GFR > 60 (>60) mL/min BUN/Creatinine Ratio 31.1 H (6-22) Glucose 172 H (80-110) mg/dL Calcium 9.3 (8.4-10.2) mg/dL Magnesium 2.2 (1.6-2.3) mg/dL Total Bilirubin 0.5 (0.2-1.3) mg/dL AST 41 H (14-36) IU/L ALT 26 (<35) IU/L Alkaline Phosphatase 107 (38-126) U/L Total Creatine Kinase 69 (30-135) U/L CK-MB (CK-2) TNP CK-MB (CK-2) Rel Index TNP Troponin I < 0.012 (0.01-0.034) ng/mL Total Protein 7.3 (6.3-8.2) g/dL Albumin 3.9 (3.5-5.0) g/dL Globulin 3.4 (1.7-4.1) g/dL Albumin/Globulin Ratio 1.1 (1.0-2.8) Lipase 61 (23-300) U/L Urine RBC None seen (0-5/HPF) Urine WBC 0-1/hpf (0-5/HPF) Ur Squamous Epith Cells 0-1 /hpf (0-5/HPF) Urine Bacteria Occasional (0-1) (None) Ur Culture Indicated? Cult not indicated SARS-CoV-2 (PCR) (Negative) Urine Dip Bedside Urine Glucose Negative Bedside Urine Bilirubin - Negative Bedside Urine Ketone - Negative Urine Specific [place] 1.010 Bedside Urine Occult Blood + Bedside Urine pH 6.0 Bedside Urine Protein - Negative Bedside Urine Urobilinogen 0.2 Bedside Urine Nitrite - Negative Bedside Urine Leukocytes - Negative Esterase Point of care testing: Urine Dip Bedside Urine Glucose Negative Bedside Urine Bilirubin - Negative Bedside Urine Ketone - Negative Urine Specific [place] 1.010 Bedside Urine Occult Blood + Bedside Urine pH 6.0 Bedside Urine Protein - Negative Bedside Urine Urobilinogen 0.2 Bedside Urine Nitrite - Negative Bedside Urine Leukocytes - Negative Esterase Imaging Data Chest x-ray: Radiologist's Impression: [address] [address] XRay Report Signed Patient: Jhoana Devine MR#: [id number] : 1960 Acct:[id number] Age/Sex: 61 / F Date of Service: 02/17/22 Loc: ED Accession Number: [id number] ?? Procedure: XR chest 1V Ordering Provider: Manny Peterson D.O. PROCEDURE:? XR CHEST 1V ? INDICATIONS:? chest pain ? TECHNIQUE:? One view of the chest was acquired.? ? COMPARISON:? [facility], , CHEST 2 VIEW, 12/28/2017, 14:52. ? FINDINGS:? ? Surgical changes and devices:? None.? ? Lungs and pleura:? Lungs are clear.? No pleural effusions or pneumothorax.? ? Mediastinum:? Mediastinal contours appear normal.? Heart size is normal.? ? Bones and chest wall:? No suspicious bony lesions.? Overlying soft tissues appear unremarkable.? ? IMPRESSION:? No acute cardiopulmonary pathology. ? ? Dictated by: Jerry Mesa M.D. on 02/17/2022 at 14:08 ? ? Approved by: Jerry Mesa M.D. on 02/17/2022 at 14:09?? ECG Data Attestation: I personally reviewed and interpreted this ECG as follows: Interpretation: Sinus rhythm Ventricular rate is 64 Normal axis Normal QRS Normal QTC No ST T wave changes MDM Narrative Medical decision making narrative: Labs unremarkable. Received fluid. Feels better after Reglan. Is able to tolerate oral intake. Labs and physical exam are reassuring. No indication for any radiologic studies currently. No indication for antibiotics. Patient was given return precautions. She expressed understanding and agreement. Discharge Plan Departure Patient Disposition: Home Clinical Impression: Nausea, Dehydration Instructions: DI for Nausea -- Adult Activity Restrictions/Additional Instructions: Continues to take all of your medications as directed. Be sure to increase your fluid intake. I do recommend a bland diet and advancing it as tolerated. Return to the emergency department for any new or worsening symptoms. Prescriptions: New metoclopramide HCl [Reglan] 5 mg tablet 5 mg PO Q6H PRN (Reason: nausea and vomiting) Qty: 14 0RF Rx Instructions: administer 30 minutes before meals No Action losartan 50 mg tablet 50 mg PO QPM Qty: 90 3RF metformin 500 mg tablet 500 mg PO QPM Qty: 90 3RF rosuvastatin 10 mg tablet 10 mg PO QPM Qty: 90 3RF trazodone 50 mg tablet 50 mg PO BEDTIME PRN (Reason: insomnia) Qty: 30 1RF ondansetron 4 mg tablet,disintegrating 4 mg PO Q8H PRN (Reason: nausea and vomiting) Qty: 20 0RF multivitamin Tablet 1 tab PO DAILY Qty: 0 0RF (DME) blood sugar diagnostic [True Metrix Glucose Test Strip] strip See Dose Instructions .ROUTE .MEDSUPPLY Qty: 100 12RF Dose Instruction: As directed Rx Instructions: Use to test blood sugar before meals and at bedtime (DME) blood-glucose meter [Contour Meter] kit See Dose Instructions .ROUTE .MEDSUPPLY Qty: 1 0RF Dose Instruction: As directed Rx Instructions: As directed sertraline [Zoloft] 50 mg tablet 50 mg PO QPM Qty: 90 3RF Lancets 1 ea miscellaneous DIRECTED 0RF doxycycline hyclate 100 mg capsule 100 mg PO BID Qty: 20 0RF Referrals: Alivia Elliott DO [Primary Care Provider] -
[2022-02-17 13:53] LABS: Add Manual Diff / Slide Review NO; Basophils Absolute Auto 0 /uL (0-100); Basophils Percent Auto 0.4 % (0-2); Eosinophils Absolute Auto 0 /uL (0-450); Eosinophils Percent Auto 0.3 % (2-4); Hematocrit 34.4 % (36-46); Hemoglobin 11.9 g/dL (12.0-16.0); Lymphocytes Absolute Auto 1100 /uL (1100-4500); Lymphocytes Percent Auto 12.1 % (25-40); Mean Corpuscular HGB Conc 34.7 % (30-36); Mean Corpuscular Hemoglobin 32.6 PG (26-34); Mean Corpuscular Volume 93.9 fL (80-100); Monocytes Absolute Auto 500 /uL (0-900); Monocytes Percent Auto 5.3 % (3-14); Neutrophils Absolute Auto 7800 /uL (1500-7000); Neutrophils Percent Auto 81.9 % (50-75); Platelet Count 262 X10^3/uL (150-400); Red Blood Cell Count 3.66 X10^6/uL (4.0-5.2); Red Cell Distribution Width 12.6 % (11.6-14.8); White Blood Cell Count 9.5 X10^3/uL (4.5-11.0)
[2022-02-17 13:58] LABS: INR 1.2 (0.9-1.3); Prothrombin Time 13.3 SECONDS (10.1-12.7)
[2022-02-17 14:00] LABS: COVID19 -Nasal RAPID Negative (Negative)
[2022-02-17 14:01] LABS: PTT Partial Thromboplastin Tim 29 SECONDS (26.4-36.2)
[2022-02-17 14:05] LABS: Alanine Aminotransferase 26 IU/L (<35); Albumin 3.9 g/dL (3.5-5.0); Albumin Globulin Ratio 1.1 (1.0-2.8); Alkaline Phosphatase 107 U/L (38-126); Aspartate Aminotransferase 41 IU/L (14-36); BUN Creatinine Ratio 31.1 (6-22); Bilirubin Total 0.5 mg/dL (0.2-1.3); Blood Urea Nitrogen 23 mg/dL (7-17); Calcium 9.3 mg/dL (8.4-10.2); Carbon Dioxide 24 mmol/L (22-32); Chloride 99 mmol/L (98-107); Creatine Kinase 69 U/L (30-135); Estimated Glomerular Filt Rate > 60 mL/min (>60); Globulin 3.4 g/dL (1.7-4.1); Glucose 172 mg/dL (80-110); HEMOLYSIS 38 (0-50); Lipase 61 U/L (23-300); Magnesium 2.2 mg/dL (1.6-2.3); Potassium 4.3 mmol/L (3.4-5.1); Sodium 131 mmol/L (137-145); Total Protein 7.3 g/dL (6.3-8.2)
[2022-02-17] MEDS: SODIUM CHLORIDE 0.9% 1,000 ML 1000 ML IV (14:05)
[2022-02-17] MEDS: METOCLOPRAMIDE 10 MG/2 ML INJ 5 MG IV (14:06)
[2022-02-17 14:16] LABS: Troponin I < 0.012 ng/mL (0.01-0.034)
[2022-02-17 15:25] LABS: Bacteria Urine Occasional (0-1); RBC Urine None Seen (0-5/HPF); Squamous Epithelial Cell Urine 0-1 /HPF (0-5/HPF); WBC Urine 0-1/HPF (0-5/HPF)
[2022-02-17 15:26] LABS: Culture Indicated Urine Cult Not Indicated
--- NOTE | 2022-02-17 15:41 | PC.NURSE ---
PO ice chips well tolerated.
== END 2022-02-17 16:49 | disposition home or self-care (01) ==
PROVIDERS: Emergency Provider Emergency Medicine; PCP Family Medicine
DX: R11.2 Nausea with vomiting, unspecified (principal); E86.0 Dehydration; R03.1 Nonspecific low blood-pressure reading; Z20.822 Contact with and (suspected) exposure to COVID-19
CPT/HCPCS: 36415; 71045; 80053; 81003; 81015; 82550; 83690; 83735; 84484; 85025; 85610; 85730; 87635; 93005; 96361; 96374; 99284; C9803; J2765

== ENCOUNTER 2022-05-01 16:12 | Emergency (ER) | payer OTHER, SELFPAY ==
[2022-05-01 16:14] VITALS: BP 134/83; PULSE 88; RESP 18; TEMP 36.6; O2SAT 97
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
[2022-05-01] MEDS: IBUPROFEN 400 MG TABLET PO (16:36)
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
[2022-05-01] MEDS: HYDROCODONE/ACET 5/325 TABLET 1 TAB PO (17:44)
== END 2022-05-01 17:45 | disposition home or self-care (01) ==
PROVIDERS: Emergency Provider Registered Nurse; PCP Family Medicine
DX: S49.92XA Unspecified injury of left shoulder and upper arm, initial encounter (principal); V19.9XXA Pedal cyclist (driver) (passenger) injured in unspecified traffic accident, initial encounter
CPT/HCPCS: 73060; 73080; 99283

== ENCOUNTER → 2022-07-29 16:33 | Outpatient (CLI) | payer OTHER, SELFPAY | PROVIDERS: PCP Family Medicine; Referring Provider Internal Medicine; Visit Provider Internal Medicine | DX: Z23 Encounter for immunization (principal) | CPT/HCPCS: 90471; 90686 ==

== ENCOUNTER 2022-12-07 10:03 | Emergency (ER) | payer OTHER, SELFPAY ==
[2022-12-07 10:15] VITALS: BP 140/67; PULSE 78; RESP 18; TEMP 36.4; O2SAT 98; BMI 32.5
--- NOTE | 2022-12-07 10:23 | DI.RAD.S_ITS ---
PROCEDURE: XR SHOULDER RT MIN 2V INDICATIONS: right shoulder pain TECHNIQUE: 3 views of the shoulder were acquired. COMPARISON: [facility], SHOULDER MINIMUM 2VIEW RIGHT, 08/28/2016, 22:57. [facility], SHOULDER MINIMUM 2 VIEW LEFT, 11/16/2014, 16:46. FINDINGS: Bones: No fractures or dislocations. No suspicious bony lesions. Visualized ribs appear intact. Glenohumeral and acromioclavicular joint spaces are with associated osteophytosis. Soft tissues: No suspicious soft tissue calcifications. IMPRESSION: 1. No acute bony abnormality. 2. Moderate glenohumeral and acromioclavicular osteoarthritis. Dictated by: Cameron Simmons M.D. on 12/07/2022 at 10:51 Approved by: Cameron Simmons M.D. on 12/07/2022 at 10:52
--- NOTE | 2022-12-07 10:51 | ED_ITS ---
HPI - Extremity Injury (Upper) General Chief Complaint: Extremity Injury, Upper Stated Complaint: Right shoulder pain Time Seen by Provider: 12/07/22 10:43 Source: patient Mode of arrival: Ambulatory History of Present Illness HPI narrative: Patient here with complains of right shoulder pain for the past 1-1/2 weeks. No known injury. Patient is left-handed. No prior surgery therapy or imaging of the shoulder in the past. Pain radiates down to the hand. Worse with trying to raise her hand above her head behind her back. Increased pain with external internal rotation for extension and flexion. No numbness tingling Related Data Home Medications Medication Instructions Recorded Confirmed multivitamin 1 tab PO DAILY ##0 12/14/11 02/15/22 Lancets 1 ea miscellaneous DIRECTED 09/30/19 02/15/22 Previous Rx's Medication Instructions Recorded blood sugar diagnostic (True #100 ea 11/01/18 Metrix Glucose Test Strip) blood-glucose meter (Contour Meter #1 ea 11/15/18 kit) trazodone 50 mg tablet 50 mg PO BEDTIME PRN insomnia #30 07/06/21 tabs doxycycline hyclate 100 mg capsule 100 mg PO BID #20 caps 10/13/21 ondansetron 4 mg disintegrating 4 mg PO Q8H PRN nausea and 02/15/22 tablet vomiting #20 tabs metoclopramide HCl 5 mg tablet 5 mg PO Q6H PRN nausea and 02/17/22 (Reglan) vomiting #14 tabs hydrocodone 5 mg-acetaminophen 325 1 tab PO TID PRN pain #10 tabs 05/01/22 mg tablet losartan 50 mg tablet See Rx Instructions .Route 11/14/22 .COMPLEX #15 tabs metformin 500 mg tablet See Rx Instructions .Route 11/14/22 .COMPLEX #15 tabs rosuvastatin 10 mg tablet See Rx Instructions .Route 11/14/22 .COMPLEX #15 tabs sertraline 50 mg tablet See Rx Instructions .Route 11/28/22 .COMPLEX #60 tabs Allergies Allergy/AdvReac Type Severity Reaction Status Date / Time lisinopril AdvReac dry, Verified 02/17/22 13:19 hackey cough Review of Systems Review of Systems Narrative: GENERAL: negative chills, fatigue, malaise, fever, sweats. HEENT: negative sinus pain, ear pain, sore throat RESPIRATORY: negative dyspnea, cough CARDIOVASCULAR: negative chest pain, palpitations GASTROINTESTINAL: negative nausea, vomiting, abdominal pain : negative dysuria, frequency, hematuria MUSCULOSKELETAL: Positive muscle or bony pain SKIN: negative rash, skin lesions NEUROLOGIC: negative weakness, numbness ROS Unobtainable: All systems reviewed & are unremarkable except as noted in HPI and below Patient History Medical History (Updated 12/07/22 @ 11:11 by Laverne Harvey RN) Chicken pox Chronic back pain (~2000) Degenerative joint disease involving multiple joints (2006) Depression (~1999) Diabetes mellitus (~2004) Measles Surgical History Anesthesia Status post appendectomy (1991) Status post delivery (1986) Status post delivery (1989) Status post hernia repair (2009) Status post tubal ligation (1991) Family History Father Age: 85 Hypertension Sister Age: 57 Breast cancer Mother Alzheimer's disease Sister No problems noted. Social History Smoking Status: Current every day smoker Smoking Status: Current every day smoker tobacco type: cigarettes Substance Use Type: does not use Exam Narrative Exam Narrative: GENERAL: in no distress, not toxic not dyspneic HEAD: Normocephalic. EYES: Pupils equal round ENT: Mucous membranes moist. EXTREMITIES: No gross deformities. Right shoulder to fingertips exposed. No gross deformity of the shoulder. Nontender elbow and wrist and hand. Increased pain of the right shoulder with internal external rotation as well as forward flexion and extension. Increased pain with attempts to abduct to 90?, increased pain with attempt to bring hand behind her back or above her shoulder NEURO: AOx4. SKIN: Warm and dry PSYCH: Not anxious, is cooperative Initial Vital Signs Initial Vital Signs: Vital Signs Temperature 97.6 F 12/07/22 10:15 Pulse Rate 78 12/07/22 10:15 Respiratory Rate 18 12/07/22 10:15 Blood Pressure 140/67 12/07/22 10:15 Pulse Oximetry 98 12/07/22 10:15 Oxygen Delivery Method 12/07/22 10:15 Course Orders Ordered: ED Orders 12/07/22 10:23 XR shoulder RT min 2V Stat Vital Signs Vital signs: Vital Signs - 8 hr 12/07/22 10:15 Temperature 97.6 F Pulse Rate 78 Respiratory Rate 18 Blood Pressure 140/67 Pulse Oximetry 98 Oxygen Delivery Method Room Air MDM - Extremity Injury (Upper) Imaging Data Extremity x-ray #1: Radiologist's Impression: [address] [address] XRay Report Signed Patient: Jhoana Devine MR#: [id number] : 1960 Acct:[id number] Age/Sex: 62 / F Date of Service: 12/07/22 Loc: ED Accession Number: [id number] ?? Procedure: XR shoulder RT min 2V Ordering Provider: Tank Rosas MD PROCEDURE:? XR SHOULDER RT MIN 2V ? INDICATIONS:? right shoulder pain ? TECHNIQUE:? 3 views of the shoulder were acquired.? ? COMPARISON:? [facility], SHOULDER MINIMUM 2VIEW RIGHT, 08/28/2016, 22:57.? [facility], SHOULDER MINIMUM 2 VIEW LEFT, 11/16/2014, 16:46. ? FINDINGS:? ? Bones:? No fractures or dislocations.? No suspicious bony lesions.? Visualized ribs appear intact.? Glenohumeral and acromioclavicular joint spaces are with assoc iated osteophytosis. ? Soft tissues:? No suspicious soft tissue calcifications.? ? IMPRESSION:? 1. No acute bony abnormality. 2. Moderate glenohumeral and acromioclavicular osteoarthritis. ? ? Dictated by: Cameron Simmons M.D. on 12/07/2022 at 10:51 ? ? Approved by: Cameron Simmons M.D. on 12/07/2022 at 10:52 ? [facility] Narrative Medical decision making narrative: Patient here with complains of right shoulder pain for the past 1-1/2 weeks. No known injury. Patient is left-handed. No prior surgery therapy or i maging of the shoulder in the past. Pain radiates down to the hand. Worse with trying to raise her hand above her head behind her back. Increased pain with external internal rotation for extension and flexion. No numbness tingling After history and exam x-ray right shoulder ordered [facility] CC: Right shoulder pain Complicating co-morbidities: No previous injury to the right shoulder Data collected from: Patient and Medical records reviewed: No previous visits for right shoulder pain Differential considered: Includes but not limited to rotator cuff tear dislocation contusion strain sprain fracture Exam documented above, pertinent findings include: Limited range of motion due to pain Imaging studies independently reviewed: X-ray right shoulder no acute process, osteoarthritis present Treatments: None required at this time Re-evaluations: Reviewed with patient x-ray films. Reviewed with her will need outpatient primary care referral for MRI and physical therapy. Referral for Orthopedics provided. Return precautions and [id number] pain medication reviewed with her. Patient does have a home sling she can use as needed for comfort. Discussion: Appropriate for discharge home. Exam and imaging otherwise reassuring. Patient will need outpatient workup for her shoulder pain. Return precautions reviewed with her. Pain controlled at time of discharge. Work note provided for tomorrow, she is off until next Monday. She agrees with treatment plan Diagnosis: Right shoulder pain Discharge Plan Departure Patient Disposition: Home Clinical Impression: Acute pain of right shoulder, Hyperlipidemia associated with type 2 diabetes mellitus Instructions: DI for Shoulder Pain Activity Restrictions/Additional Instructions: May use home shoulder sling as needed for pain. May continue Tylenol or ibuprofen for pain. Please see your family doctor to schedule for outpatient MRI of his shoulder and possible physical therapy. Please call provided orthopedic office, Dr. Cruz today to make appointment for your shoulder pain. Return if worse if any questions or concerns Prescriptions: No Action trazodone 50 mg tablet 50 mg PO BEDTIME PRN (Reason: insomnia) Qty: 30 1RF ondansetron 4 mg tablet,disintegrating 4 mg PO Q8H PRN (Reason: nausea and vomiting) Qty: 20 0RF multivitamin Tablet 1 tab PO DAILY Qty: 0 (DME) blood sugar diagnostic [True Metrix Glucose Test Strip] strip See Dose Instructions .ROUTE .MEDSUPPLY Qty: 100 12RF Dose Instruction: As directed Rx Instructions: Use to test blood sugar before meals and at bedtime (DME) blood-glucose meter [Contour Meter] kit See Dose Instructions .ROUTE .MEDSUPPLY Qty: 1 0RF Dose Instruction: As directed Rx Instructions: As directed losartan 50 mg tablet See Rx Instructions .ROUTE .COMPLEX Qty: 15 0RF Dose Instruction: TAKE 1 TABLET (50 MG) BY MOUTH EVERY EVENING Rx Instructions: TAKE 1 TABLET (50 MG) BY MOUTH EVERY EVENING rosuvastatin 10 mg tablet See Rx Instructions .ROUTE .COMPLEX Qty: 15 0RF Dose Instruction: TALE 1 TABLET (10 MG) BY MOUTH EVERY EVENING Rx Instructions: TALE 1 TABLET (10 MG) BY MOUTH EVERY EVENING metformin 500 mg tablet See Rx Instructions .ROUTE .COMPLEX Qty: 15 0RF Dose Instruction: TAKE 1 TABLET (500 MG) BY MOUTH EVERY EVENING Rx Instructions: TAKE 1 TABLET (500 MG) BY MOUTH EVERY EVENING sertraline 50 mg tablet See Rx Instructions .ROUTE .COMPLEX Qty: 60 1RF Dose Instruction: TAKE 1 TABLET (50 MG) BY MOUTH EVERY EVENING Rx Instructions: TAKE 2 TABLET (50 MG) BY MOUTH EVERY EVENING Lancets 1 ea miscellaneous DIRECTED doxycycline hyclate 100 mg capsule 100 mg PO BID Qty: 20 0RF hydrocodone-acetaminophen 5-325 mg tablet 1 tab PO TID PRN (Reason: pain) Qty: 10 0RF metoclopramide HCl [Reglan] 5 mg tablet 5 mg PO Q6H PRN (Reason: nausea and vomiting) Qty: 14 0RF Rx Instructions: administer 30 minutes before meals Referrals: Alivia Elliott DO [Primary Care Provider] - Paz Cruz MD [Physician] - Stand Alone Forms: Patient Portal/API, Work Release Note
== END 2022-12-07 11:11 | disposition home or self-care (01) ==
PROVIDERS: Emergency Provider Emergency Medicine; PCP Family Medicine
DX: M25.511 Pain in right shoulder (principal); E11.69 Type 2 diabetes mellitus with other specified complication; E78.5 Hyperlipidemia, unspecified; Z79.899 Other long term (current) drug therapy
CPT/HCPCS: 73030; 99281; 99283

== ENCOUNTER → 2023-01-24 10:38 | Outpatient (CLI) | payer OTHER, SELFPAY ==
[2023-01-24 12:25] LABS: Add Manual Diff / Slide Review NO; Basophils Absolute Auto 0 /uL (0-100); Basophils Percent Auto 0.5 % (0-2); Eosinophils Absolute Auto 200 /uL (0-450); Eosinophils Percent Auto 1.6 % (2-4); Hematocrit 42.2 % (36-46); Hemoglobin 14.3 g/dL (12.0-16.0); Lymphocytes Absolute Auto 2000 /uL (1100-4500); Lymphocytes Percent Auto 21.8 % (25-40); Mean Corpuscular HGB Conc 33.9 % (30-36); Mean Corpuscular Hemoglobin 32.7 PG (26-34); Mean Corpuscular Volume 96.4 fL (80-100); Monocytes Absolute Auto 600 /uL (0-900); Monocytes Percent Auto 6.5 % (3-14); Neutrophils Absolute Auto 6500 /uL (1500-7000); Neutrophils Percent Auto 69.6 % (50-75); Platelet Count 256 X10^3/uL (150-400); Red Blood Cell Count 4.38 X10^6/uL (4.0-5.2); Red Cell Distribution Width 12.9 % (11.6-14.8); White Blood Cell Count 9.4 X10^3/uL (4.5-11.0)
[2023-01-24 12:37] LABS: Creatinine Urine Random 11.1 mg/dL
[2023-01-24 12:40] LABS: Alanine Aminotransferase 24 IU/L (<35); Albumin 4.3 g/dL (3.5-5.0); Albumin Globulin Ratio 1.4 (1.0-2.8); Alkaline Phosphatase 72 U/L (38-126); Aspartate Aminotransferase 24 IU/L (14-36); BUN Creatinine Ratio 26.2 (6-22); Bilirubin Total 0.4 mg/dL (0.2-1.3); Blood Urea Nitrogen 16 mg/dL (7-17); Calcium 9.4 mg/dL (8.4-10.2); Carbon Dioxide 29 mmol/L (22-32); Chloride 101 mmol/L (98-107); Cholesterol 146 mg/dL (140-199); Estimated Glomerular Filt Rate > 60 mL/min (>60); Glucose 142 mg/dL (80-110); HDL Cholesterol 57 mg/dL (40-60); HEMOLYSIS < 15 (0-50); LDL Cholesterol Calculated 75 mg/dL (<100); Potassium 4.3 mmol/L (3.4-5.1); Sodium 138 mmol/L (137-145); Total Protein 7.3 g/dL (6.3-8.2); Triglycerides 72 mg/dL (35-150)
[2023-01-24 12:42] LABS: Microalbumi Creatinin Ratio Ur 162.1 ug/mg CR (<30); Microalbumin Urine Random 1.8 mg/dL (0-1.6)
[2023-01-25 05:38] LABS: Labcorp Hemoglobin (Hb) A1c 7.6 % (4.8-5.6)
[2023-01-25 09:59] LABS: Fecal Immunochemical Test Negative (Negative)
== END ==
PROVIDERS: PCP Family Medicine; Referring Provider Family Medicine; Visit Provider Family Medicine
DX: E11.69 Type 2 diabetes mellitus with other specified complication (principal); E11.9 Type 2 diabetes mellitus without complications; E78.5 Hyperlipidemia, unspecified; Z12.11 Encounter for screening for malignant neoplasm of colon; D64.9 Anemia, unspecified
CPT/HCPCS: 36415; 80053; 80061; 82043; 82274; 82570; 83036; 85025

== ENCOUNTER → 2023-06-15 14:39 | Outpatient (CLI) | payer OTHER, SELFPAY ==
[2023-06-15 15:40] LABS: Hemoglobin A1C% w Est Avg Glu 7.3 % (4.0-6.0)
[2023-06-15 16:04] LABS: Creatinine Urine Random 33.9 mg/dL
[2023-06-15 16:09] LABS: Microalbumi Creatinin Ratio Ur 38.3 ug/mg CR (<30); Microalbumin Urine Random 1.3 mg/dL (0-1.6)
== END ==
PROVIDERS: PCP Pediatrics; Referring Provider Pediatrics; Visit Provider Pediatrics
DX: E11.69 Type 2 diabetes mellitus with other specified complication (principal); E11.9 Type 2 diabetes mellitus without complications; E78.5 Hyperlipidemia, unspecified; I10 Essential (primary) hypertension
CPT/HCPCS: 82043; 82570; 83036

== ENCOUNTER → 2023-08-01 18:57 | Outpatient (CLI) | payer OTHER, SELFPAY | PROVIDERS: PCP Student in an Organized Health Care Education/Training Program; Referring Provider Family Medicine; Visit Provider Family Medicine | DX: Z23 Encounter for immunization (principal) | CPT/HCPCS: 90471; 90686 ==

== ENCOUNTER 2023-08-12 12:25 | Emergency (ER) | payer OTHER, SELFPAY ==
[2023-08-12 12:29] VITALS: BP 139/79; PULSE 83; RESP 16; TEMP 36.7; O2SAT 99; BMI 32.0
--- NOTE | 2023-08-12 12:36 | DI.CT.S_ITS ---
PROCEDURE: CT CERVICAL SPINE WO CON INDICATIONS: glf TECHNIQUE: Noncontrast 3 mm thick sections acquired from the skull base to the T4 level. Sagittal and coronal reformats were then constructed. For radiation dose reduction, the following was used: automated exposure control, adjustment of mA and/or kV according to patient size. COMPARISON: [facility], CT, C-SPINE WITHOUT CONTRAST, 05/25/2013, 18:31. FINDINGS: Image quality: Excellent. Bones: No fractures or dislocations. Visualized superior ribs are intact. 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 No paravertebral hematomas. No apical pneumothoraces. IMPRESSION: No evidence of fracture or traumatic malalignment. [id number] degenerative disc disease and arthropathy in the mid cervical spine Approved by: Baljinder Gage M.D. on 08/12/2023 at 12:20
--- NOTE | 2023-08-12 12:36 | DI.CT.S_ITS ---
PROCEDURE: CT HEAD/BRAIN WO CON INDICATIONS: Ground level fall TECHNIQUE: Noncontrast 4.5 mm thick angled axial sections acquired from the foramen magnum to the vertex, with coronal and sagittal reformats. For radiation dose reduction, the following was used: automated exposure control, adjustment of mA and/or kV according to patient size. COMPARISON: [facility], CT, HEAD WITHOUT CONTRAST, 05/25/2013, 18:31. FINDINGS: Image quality: Excellent. CSF spaces: Basal cisterns are patent. No extra-axial fluid collections. Ventricles are normal in size and shape. Brain: No midline shift. No intracranial masses or hemorrhage. Feliciano-white matter interface is normal. Mild atrophy and matter chronic ischemic change Skull and face: Calvarium and visualized facial bones are intact, without suspicious lesions. Sinuses: Air-fluid level noted in the right maxillary sinus IMPRESSION: Atrophy and chronic ischemic change without intracranial hemorrhage or mass effect Approved by: Baljinder Gage M.D. on 08/12/2023 at 12:18
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
[2023-08-12 13:55] VITALS: BP 131/72; PULSE 72; RESP 16; O2SAT 99
== END 2023-08-12 13:55 | disposition home or self-care (01) ==
PROVIDERS: Emergency Provider Registered Nurse; PCP Student in an Organized Health Care Education/Training Program
DX: S09.90XA Unspecified injury of head, initial encounter (principal); W18.30XA Fall on same level, unspecified, initial encounter
CPT/HCPCS: 70450; 72125; 99283; 99284

== ENCOUNTER → 2023-12-23 10:44 | Outpatient (CLI) | payer OTHER, SELFPAY ==
--- NOTE | 2023-12-23 10:46 | DI.MG.S_ITS ---
BILATERAL DIGITAL SCREENING MAMMOGRAM 3D/2D WITH CAD: 12/23/2023 CLINICAL: Routine screening. Family history of breast cancer. Comparison is made to exams dated: 12/26/2019 mammogram, 05/31/2017 mammogram, and 01/29/2015 mammogram - [facility]. Both breasts are almost entirely fatty (category a/<25% glandular tissue). Current study was also evaluated with a Computer Aided Detection (CAD) system. No significant masses, calcifications, or other findings are seen in either breast. There has been no significant interval change. IMPRESSION: NEGATIVE There is no mammographic evidence of malignancy. A 1 year screening mammogram is recommended. Based on the Tyrer Cuzick model (a risk assessment model) the patient's lifetime risk is 6.0% and her 10 year risk is 2.8%. According to the ACR, ACS, and NCCN guidelines, an annual breast MRI exam along with mammogram is recommended if the patient's lifetime risk is 20% or greater. This exam was interpreted at Station ID: [id number]. NOTE: For mammograms, a report in lay terms will be sent to the patient. Approximately 15% of breast malignancies will not be visualized mammographically. In the management of a palpable breast mass, a negative mammogram must not discourage biopsy of a clinically suspicious lesion. Electronically Signed By: Abbi bass/hardik:12/25/2023 08:55:48 letter sent: Normal Exam ACR BI-RADS Category 1: Negative [id number]
== END ==
PROVIDERS: PCP Student in an Organized Health Care Education/Training Program; Referring Provider Student in an Organized Health Care Education/Training Program; Visit Provider Student in an Organized Health Care Education/Training Program
DX: Z12.31 Encounter for screening mammogram for malignant neoplasm of breast (principal); Z80.3 Family history of malignant neoplasm of breast
CPT/HCPCS: 77063; 77067

== ENCOUNTER 2024-05-15 19:31 | Emergency (ER) | payer OTHER, SELFPAY ==
[2024-05-15 19:49] VITALS: BP 135/77; PULSE 79; RESP 16; TEMP 36.4; O2SAT 98; BMI 27.3
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
[2024-05-15 21:34] VITALS: PULSE 75; O2SAT 97
[2024-05-15 21:35] VITALS: BP 136/78; PULSE 73; O2SAT 97
--- NOTE | 2024-05-15 21:37 | PC.NURSE ---
Pt states pain with movement of thumb.
[2024-05-15] MEDS: IBUPROFEN 400 MG TABLET PO (21:49)
[2024-05-15 22:00] VITALS: BP 124/75; PULSE 70; O2SAT 97
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
[2024-05-15 22:30] VITALS: PULSE 63; RESP 18; O2SAT 98
== END 2024-05-15 22:45 | disposition home or self-care (01) ==
PROVIDERS: Emergency Provider Emergency Medicine; PCP Student in an Organized Health Care Education/Training Program
DX: S60.212A Contusion of left wrist, initial encounter (principal); V29.91XA Electric (assisted) bicycle rider (driver) (passenger) injured in unspecified traffic accident, initial encounter
CPT/HCPCS: 73110; 99283

== ENCOUNTER → 2024-07-18 15:12 | Outpatient (CLI) | payer OTHER, MEDICARE, SELFPAY ==
--- NOTE | 2024-07-18 15:16 | EKG_ITS ---
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
[2024-07-18 15:53] LABS: Add Manual Diff / Slide Review NO; Basophils Absolute Auto 0 /uL (0-100); Basophils Percent Auto 0.5 % (0-2); Eosinophils Absolute Auto 300 /uL (0-450); Eosinophils Percent Auto 3.2 % (2-4); Hematocrit 40.6 % (36-46); Hemoglobin 14.1 g/dL (12.0-16.0); Lymphocytes Absolute Auto 2300 /uL (1100-4500); Mean Corpuscular HGB Conc 34.7 % (30-36); Mean Corpuscular Hemoglobin 32.9 PG (26-34); Mean Corpuscular Volume 94.8 fL (80-100); Monocytes Absolute Auto 700 /uL (0-900); Monocytes Percent Auto 6.7 % (3-14); Neutrophils Absolute Auto 6600 /uL (1500-7000); Neutrophils Percent Auto 66.6 % (50-75); Platelet Count 277 X10^3/uL (150-400); Red Blood Cell Count 4.29 X10^6/uL (4.0-5.2); Red Cell Distribution Width 12.8 % (11.6-14.8); White Blood Cell Count 9.9 X10^3/uL (4.5-11.0)
[2024-07-18 16:01] LABS: BUN Creatinine Ratio 16.9 (6-22); Blood Urea Nitrogen 15 mg/dL (7-17); Calcium 9.1 mg/dL (8.4-10.2); Carbon Dioxide 24 mmol/L (22-32); Chloride 106 mmol/L (98-107); Estimated Glomerular Filt Rate > 60 mL/min (>60); Glucose 106 mg/dL (80-110); HEMOLYSIS < 15 (0-50); Sodium 136 mmol/L (137-145)
== END ==
PROVIDERS: PCP Student in an Organized Health Care Education/Training Program; Referring Provider Orthopaedic Surgery; Visit Provider Orthopaedic Surgery
DX: Z01.818 Encounter for other preprocedural examination (principal); N39.0 Urinary tract infection, site not specified; Z01.812 Encounter for preprocedural laboratory examination
CPT/HCPCS: 36415; 80048; 85025; 93005; 93010

== ENCOUNTER → 2024-07-21 14:42 | Outpatient (CLI) | payer OTHER, MEDICARE, SELFPAY ==
--- NOTE | 2024-07-21 | DI.CT.S_ITS ---
PROCEDURE: CT UE RT WO CON INDICATIONS: PRIMARY OSTEOARTHRITIS RT SHOULDER TECHNIQUE: Noncontrast 0.75 mm thick sections acquired from the acromioclavicular joint to the inferior scapula, with coronal and sagittal reformatting. COMPARISON: No prior CT shoulder for comparison. Comparison can be made to prior x-ray right shoulder December 27 2023. Prior report is not available. FINDINGS: Image quality: Excellent. Moderate degenerative changes of the right glenohumeral joint with [id number] configuration, flattening and remodeling of the glenoid and to a lesser degree the humeral head, marginal osteophytes and mild subchondral sclerotic changes. Moderate degenerative changes of the right acromioclavicular joint with joint space narrowing and osteophytes. Type 3 inferiorly hooked acromion. Mild cephalad positioning of the humeral head in relation to the glenoid commonly may be related to chronic rotator cuff tear. Mild apparent fatty atrophy of the supraspinatus, subscapularis and to a lesser degree infraspinatus muscles. No CT evidence of fracture, dislocation or high attenuation soft tissue foreign body. Incidental note is made of degenerative changes lower cervical spine partially imaged on this shoulder exam. Mild COPD changes with mild centilobular emphysema in the right upper lobe partially imaged. Mild heterogeneous attenuation of the thyroid gland with calcification in the right thyroid lobe commonly may represent goiter or other process. If indicated correlation with serum thyroid studies and/or thyroid ultrasound could be considered. Incidental note is made of aneurysmal dilatation of the ascending aorta partially imaged measures up to 4.8 cm diameter. This could be evaluated further with CT chest with contrast. 2 mm calcified granuloma right upper lobe posteriorly (series 3, image 70 incidentally noted. No pneumothorax, no pleural effusion, no focal consolidation in the right lung. IMPRESSION: Incidental note is made of aneurysmal dilatation of the ascending aorta partially imaged measures up to 4.8 cm diameter. This could be evaluated further with CT chest with contrast. Moderate degenerative changes of the right glenohumeral joint with [id number] configuration as discussed above. Moderate degenerative changes of the right acromioclavicular joint. Type 3 inferiorly hooked acromion. Mild cephalad positioning of the humeral head in relation to the glenoid commonly may be related to chronic rotator cuff tear. Mild fatty atrophy of the rotator cuff muscles as discussed above. Mild COPD/emphysematous changes. Mild heterogeneous attenuation of the thyroid gland as discussed above. No CT evidence of fracture, dislocation. Dictated by: Darin Sena M.D. on 07/23/2024 at 11:46 Approved by: Darin Sena M.D. on 07/23/2024 at 12:00
== END ==
LOC: CT 14:44
PROVIDERS: PCP Student in an Organized Health Care Education/Training Program; Referring Provider Orthopaedic Surgery; Visit Provider Orthopaedic Surgery
DX: M19.011 Primary osteoarthritis, right shoulder (principal); I71.21 Aneurysm of the ascending aorta, without rupture; J43.2 Centrilobular emphysema
CPT/HCPCS: 73200

== ENCOUNTER → 2024-08-14 | Outpatient (CLI) | payer OTHER, MEDICARE, SELFPAY | PROVIDERS: PCP Student in an Organized Health Care Education/Training Program; Referring Provider Internal Medicine; Visit Provider Internal Medicine | DX: Z23 Encounter for immunization (principal) | CPT/HCPCS: 90471; 90662 ==

== ENCOUNTER → 2024-10-01 10:09 | Outpatient (CLI) | payer OTHER, MEDICARE, SELFPAY ==
[2024-10-01 11:00] LABS: Add Manual Diff / Slide Review NO; Basophils Absolute Auto 0 /uL (0-100); Basophils Percent Auto 0.3 % (0-2); Eosinophils Absolute Auto 200 /uL (0-450); Eosinophils Percent Auto 1.8 % (2-4); Hematocrit 42.5 % (36-46); Hemoglobin 14.3 g/dL (12.0-16.0); Lymphocytes Absolute Auto 1600 /uL (1100-4500); Lymphocytes Percent Auto 13.3 % (25-40); Mean Corpuscular HGB Conc 33.8 % (30-36); Mean Corpuscular Hemoglobin 32.1 PG (26-34); Mean Corpuscular Volume 95.2 fL (80-100); Monocytes Absolute Auto 700 /uL (0-900); Monocytes Percent Auto 5.5 % (3-14); Neutrophils Absolute Auto 9800 /uL (1500-7000); Neutrophils Percent Auto 79.1 % (50-75); Platelet Count 302 X10^3/uL (150-400); Red Blood Cell Count 4.46 X10^6/uL (4.0-5.2); Red Cell Distribution Width 13.4 % (11.6-14.8); White Blood Cell Count 12.4 X10^3/uL (4.5-11.0)
[2024-10-01 11:06] LABS: Hemoglobin A1C% w Est Avg Glu 5.5 % (4.0-6.0)
[2024-10-01 11:24] LABS: Alanine Aminotransferase 17 IU/L (<35); Albumin Globulin Ratio 1.5 (1.0-2.8); Alkaline Phosphatase 94 U/L (38-126); Aspartate Aminotransferase 24 IU/L (14-36); BUN Creatinine Ratio 24.4 (6-22); Bilirubin Total 0.5 mg/dL (0.2-1.3); Blood Urea Nitrogen 19 mg/dL (7-17); Calcium 9.6 mg/dL (8.4-10.2); Carbon Dioxide 28 mmol/L (22-32); Chloride 104 mmol/L (98-107); Cholesterol 166 mg/dL (140-199); Estimated Glomerular Filt Rate > 60 mL/min (>60); Globulin 2.6 g/dL (1.7-4.1); Glucose 99 mg/dL (80-110); HDL Cholesterol 61 mg/dL (40-60); HEMOLYSIS < 15 (0-50); LDL Cholesterol Calculated 87 mg/dL (<100); Potassium 4.3 mmol/L (3.4-5.1); Sodium 135 mmol/L (137-145); Total Protein 6.6 g/dL (6.3-8.2); Triglycerides 88 mg/dL (35-150)
[2024-10-01 12:10] LABS: Creatinine Urine Random 40.87 mg/dL
[2024-10-01 12:17] LABS: Microalbumin Urine Random 0.9 mg/dL (0-1.6)
== END ==
LOC: LAB 10:11
PROVIDERS: PCP Student in an Organized Health Care Education/Training Program; Referring Provider Student in an Organized Health Care Education/Training Program; Visit Provider Student in an Organized Health Care Education/Training Program
DX: E66.9 Obesity, unspecified (principal); E11.9 Type 2 diabetes mellitus without complications
CPT/HCPCS: 36415; 80053; 80061; 82043; 82570; 83036; 85025

== ENCOUNTER → 2024-10-03 14:36 | Outpatient (CLI) | payer OTHER, MEDICARE, SELFPAY ==
--- NOTE | 2024-10-03 14:38 | DI.CT.S_ITS ---
PROCEDURE: CT CHEST W CON INDICATIONS: Incidental finding of Aortic aneurysm TECHNIQUE: After the administration of intravenous contrast, 5 mm thick sections acquired from the pulmonary apices to the posterior costophrenic angles. 1 mm axial lung, 5 mm thick coronal and sagittal reformats and 7 mm axial MIP were acquired. For radiation dose reduction, the following was used: automated exposure control, adjustment of mA and/or kV according to patient size. COMPARISON: None. FINDINGS: Image quality: Diagnostic. Lower Neck: No enlarged lymph nodes. Thyroid: No thyroid nodules which require sonographic follow up, per consensus guidelines. Axillae: No enlarged lymph nodes. Chest Wall: Unremarkable. Bones: Right shoulder prosthesis. Old healed left-sided rib fractures. Lungs and Pleura: No pneumothorax or pleural effusions. No consolidation or suspicious nodules. Heart: Heart size is normal. No pericardial effusion. Thoracic Vessels: Ascending thoracic aortic fusiform aneurysm measures 4.9 x 4.5 cm. Aortic arch smoothly tapers to normal caliber. Mediastinum and Lisbet: No enlarged lymph nodes. Esophagus: No wall thickening. No hiatal hernia. Upper Abdomen: Visualized upper abdomen solid organs and bowel loops appear normal. IMPRESSION: Ascending thoracic aortic aneurysm without dissection Approved by: Baljinder Gage M.D. on 10/03/2024 at 18:31
== END ==
LOC: CT 14:37
PROVIDERS: PCP Student in an Organized Health Care Education/Training Program; Referring Provider Student in an Organized Health Care Education/Training Program; Visit Provider Student in an Organized Health Care Education/Training Program
DX: I71.21 Aneurysm of the ascending aorta, without rupture (principal)
CPT/HCPCS: 71260; Q9967

== ENCOUNTER → 2024-10-09 11:46 | Outpatient (CLI) | payer OTHER, MEDICARE, SELFPAY ==
[2024-10-10 10:36] LABS: Fecal Immunochemical Test Negative (Negative)
== END ==
PROVIDERS: PCP Student in an Organized Health Care Education/Training Program; Referring Provider Student in an Organized Health Care Education/Training Program; Visit Provider Student in an Organized Health Care Education/Training Program
DX: Z12.11 Encounter for screening for malignant neoplasm of colon (principal)
CPT/HCPCS: 82274